=== PATIENT | female | born 1950 | race Caucasian/White ===

== ENCOUNTER → 2016-07-10 | Outpatient (CLI) | payer MEDICARE, OTHER ==
[2016-07-10 11:12] LABS: ABSOLUTE EOSINOPHILS # (AUTO) 0.1 10^3/uL (0.0-0.6); ABSOLUTE MONOCYTES (AUTO) 0.4 10^3/uL (0.1-1.4); ABSOLUTE NEUT (AUTO) 2.7 10^3/uL (1.7-8.2); BASOPHILS % (AUTO) 0.4 % (0-2); EOSINOPHILS % (AUTO) 2.4 % (0-6); HEMATOCRIT 31.2 % (36.0-47.0); HEMOGLOBIN 10.6 g/dL (12.0-15.5); HGB HCT DIFFERENCE 0.6; LYMPHOCYTES % (AUTO) 22.9 % (13-45); MEAN CORPUSCULAR HEMOGLOBIN 32.6 pg (27.0-33.4); MEAN CORPUSCULAR HGB CONC 33.9 g/dL (32.0-36.0); MEAN CORPUSCULAR VOLUME 96 fl (80-97); MONOCYTES % (AUTO) 9.9 % (3-13); RED BLOOD COUNT 3.24 10^6/uL (3.72-5.28); RED CELL DISTRIBUTION WIDTH 16.6 % (11.5-14.0); SEGMENTED NEUTROPHILS % (AUTO) 64.4 % (42-78); WHITE BLOOD COUNT 4.2 10^3/uL (4.0-10.5)
[2016-07-10 11:22] LABS: APPEARANCE,URINE CLEAR; BILIRUBIN,URINE NEGATIVE (NEGATIVE); GLUCOSE, URINE NEGATIVE (NEGATIVE); KETONES,URINE NEGATIVE (NEGATIVE); LEUKOCYTE ESTERASE,URINE NEGATIVE (NEGATIVE); NITRITE,URINE NEGATIVE (NEGATIVE); PROTEIN,URINE NEGATIVE (NEGATIVE); UROBILINOGEN,URINE NEGATIVE mg/dL (<2.0)
[2016-07-10 11:26] LABS: ALANINE AMINOTRANSFERASE 36 U/L (9-52); ALBUMIN 4.1 g/dL (3.5-5.0); ALKALINE PHOSPHATASE 155 U/L (38-126); ANION GAP 9 (5-19); ASPARTATE AMINO TRANSFERASE 42 U/L (14-36); BILIRUBIN,TOTAL 2.6 mg/dL (0.2-1.3); BLOOD UREA NITROGEN 30 mg/dL (7-20); CALCIUM 9.2 mg/dL (8.4-10.2); CARBON DIOXIDE 30 mmol/L (22-30); CHLORIDE 99 mmol/L (98-107); GLUCOSE 100 mg/dL (75-110); MAGNESIUM 2.1 mg/dL (1.6-2.3); POTASSIUM 3.8 mmol/L (3.6-5.0); SODIUM 138.1 mmol/L (137-145); TOTAL PROTEIN 8.1 g/dL (6.3-8.2)
== END ==
LOC: OD 10:29
PROVIDERS: ATTEND Internal Medicine Cardiovascular Disease
DX: Z79.899 Other long term (current) drug therapy (principal); Z79.01 Long term (current) use of anticoagulants
CPT/HCPCS: 36415; 80048; 80076; 81001; 82272; 83735; 85025; 85730

== ENCOUNTER → 2016-10-21 | Outpatient (CLI) | payer MEDICARE, OTHER ==
[2016-10-21 11:21] LABS: APPEARANCE,URINE CLEAR; BILIRUBIN,URINE NEGATIVE (NEGATIVE); GLUCOSE, URINE NEGATIVE (NEGATIVE); KETONES,URINE NEGATIVE (NEGATIVE); LEUKOCYTE ESTERASE,URINE NEGATIVE (NEGATIVE); NITRITE,URINE NEGATIVE (NEGATIVE); PROTEIN,URINE NEGATIVE (NEGATIVE); URINE SPECIFIC GRAVITY 1.006; UROBILINOGEN,URINE NEGATIVE mg/dL (<2.0)
[2016-10-21 12:01] LABS: ABSOLUTE EOSINOPHILS # (AUTO) 0.2 10^3/uL (0.0-0.6); ABSOLUTE MONOCYTES (AUTO) 0.5 10^3/uL (0.1-1.4); ABSOLUTE NEUT (AUTO) 2.5 10^3/uL (1.7-8.2); BASOPHILS % (AUTO) 0.3 % (0-2); EOSINOPHILS % (AUTO) 5.7 % (0-6); HEMATOCRIT 32.3 % (36.0-47.0); HEMOGLOBIN 10.9 g/dL (12.0-15.5); HGB HCT DIFFERENCE 0.4; LYMPHOCYTES % (AUTO) 23.9 % (13-45); MEAN CORPUSCULAR HEMOGLOBIN 33.2 pg (27.0-33.4); MEAN CORPUSCULAR HGB CONC 33.8 g/dL (32.0-36.0); MEAN CORPUSCULAR VOLUME 98 fl (80-97); MONOCYTES % (AUTO) 10.9 % (3-13); RED BLOOD COUNT 3.29 10^6/uL (3.72-5.28); RED CELL DISTRIBUTION WIDTH 14.7 % (11.5-14.0); SEGMENTED NEUTROPHILS % (AUTO) 59.2 % (42-78); WHITE BLOOD COUNT 4.2 10^3/uL (4.0-10.5)
[2016-10-21 12:26] LABS: ALANINE AMINOTRANSFERASE 29 U/L (9-52); ALBUMIN 3.8 g/dL (3.5-5.0); ALKALINE PHOSPHATASE 180 U/L (38-126); ANION GAP 9 (5-19); ASPARTATE AMINO TRANSFERASE 39 U/L (14-36); BILIRUBIN,DIRECT 0.4 mg/dL (0.0-0.4); BILIRUBIN,TOTAL 1.1 mg/dL (0.2-1.3); BLOOD UREA NITROGEN 14 mg/dL (7-20); CALCIUM 9.4 mg/dL (8.4-10.2); CARBON DIOXIDE 26 mmol/L (22-30); CHLORIDE 107 mmol/L (98-107); CREATININE RESULT 0.77 mg/dL (0.52-1.25); GLUCOSE 88 mg/dL (75-110); MAGNESIUM 2.1 mg/dL (1.6-2.3); POTASSIUM 4.4 mmol/L (3.6-5.0); TOTAL PROTEIN 7.9 g/dL (6.3-8.2)
== END ==
LOC: OD 10:35
PROVIDERS: ATTEND Internal Medicine Cardiovascular Disease
DX: Z79.01 Long term (current) use of anticoagulants (principal); Z79.899 Other long term (current) drug therapy
CPT/HCPCS: 36415; 80048; 80076; 81001; 82272; 83735; 85025; 85730

== ENCOUNTER → 2017-02-08 | Outpatient (CLI) | payer MEDICARE, OTHER ==
[2017-02-08 12:40] LABS: APPEARANCE,URINE SLIGHTLY-CLOUDY; BILIRUBIN,URINE NEGATIVE (NEGATIVE); CALCIUM OXALATE CRYSTALS,URINE MANY /HPF; GLUCOSE, URINE NEGATIVE (NEGATIVE); KETONES,URINE NEGATIVE (NEGATIVE); LEUKOCYTE ESTERASE,URINE NEGATIVE (NEGATIVE); NITRITE,URINE NEGATIVE (NEGATIVE); PROTEIN,URINE NEGATIVE (NEGATIVE); URINE SPECIFIC GRAVITY 1.013; UROBILINOGEN,URINE NEGATIVE mg/dL (<2.0)
[2017-02-08 13:30] LABS: ABSOLUTE EOSINOPHILS # (AUTO) 0.3 10^3/uL (0.0-0.6); ABSOLUTE LYMPHOCYTES (AUTO) 1.2 10^3/uL (0.5-4.7); ABSOLUTE MONOCYTES (AUTO) 0.3 10^3/uL (0.1-1.4); BASOPHILS % (AUTO) 0.3 % (0-2); EOSINOPHILS % (AUTO) 7.2 % (0-6); HEMATOCRIT 34.4 % (36.0-47.0); HEMOGLOBIN 12.1 g/dL (12.0-15.5); HGB HCT DIFFERENCE 1.9; LYMPHOCYTES % (AUTO) 31.8 % (13-45); MEAN CORPUSCULAR HEMOGLOBIN 32.8 pg (27.0-33.4); MEAN CORPUSCULAR HGB CONC 35.1 g/dL (32.0-36.0); MEAN CORPUSCULAR VOLUME 93 fl (80-97); MONOCYTES % (AUTO) 8.7 % (3-13); RED BLOOD COUNT 3.69 10^6/uL (3.72-5.28); RED CELL DISTRIBUTION WIDTH 13.4 % (11.5-14.0); WHITE BLOOD COUNT 3.8 10^3/uL (4.0-10.5)
[2017-02-08 13:47] LABS: ALANINE AMINOTRANSFERASE 31 U/L (9-52); ALBUMIN 3.8 g/dL (3.5-5.0); ALKALINE PHOSPHATASE 150 U/L (38-126); ANION GAP 8 (5-19); ASPARTATE AMINO TRANSFERASE 40 U/L (14-36); BILIRUBIN,DIRECT 0.4 mg/dL (0.0-0.4); BILIRUBIN,TOTAL 0.8 mg/dL (0.2-1.3); BLOOD UREA NITROGEN 16 mg/dL (7-20); CALCIUM 9.3 mg/dL (8.4-10.2); CARBON DIOXIDE 28 mmol/L (22-30); CHLORIDE 105 mmol/L (98-107); CREATININE RESULT 0.91 mg/dL (0.52-1.25); GLUCOSE 89 mg/dL (75-110); MAGNESIUM 2.1 mg/dL (1.6-2.3); POTASSIUM 4.4 mmol/L (3.6-5.0); SODIUM 141.3 mmol/L (137-145); TOTAL PROTEIN 7.7 g/dL (6.3-8.2)
== END ==
LOC: OD 11:45
PROVIDERS: ATTEND Internal Medicine Cardiovascular Disease
DX: Z51.81 Encounter for therapeutic drug level monitoring (principal); Z79.899 Other long term (current) drug therapy; Z79.01 Long term (current) use of anticoagulants
CPT/HCPCS: 36415; 80048; 80076; 81001; 82272; 83735; 85025; 85730

== ENCOUNTER 2017-02-26 18:23 | Emergency (ER) | payer MEDICARE, OTHER ==
--- NOTE | 2017-02-26 19:08 | ER Document Report ---
ED General - General Chief Complaint: Fever Stated Complaint: POSSIBLE FEVER Time Seen by Provider: 02/26/17 19:00 Mode of Arrival: Ambulatory Information source: Patient Notes: 66-year-old female presents with concerns for urinary tract infection. Patient notes that she has had intermittent fever over the past 2 days. Denies any pain anywhere. Patient admits to chills denies any shortness of breath cough TRAVEL OUTSIDE OF THE [place] IN LAST 30 DAYS: No - HPI Onset: Yesterday Onset/Duration: Intermittent Quality of pain: No pain Severity: Mild Pain Level: Denies Associated symptoms: Nausea Exacerbated by: Denies Relieved by: Denies Similar symptoms previously: Yes Recently seen / treated by doctor: Yes - Related Data Allergies/Adverse Reactions: codeine [Codeine] Allergy (Mild, Verified 05/26/12 09:28) Hyperactivity Iodinated Contrast- Oral and IV Dye [IV Dye, Iodine Containing] Allergy ( Verified 05/23/12 09:43) nitrofurantoin [From Macrobid] Allergy (Verified 05/23/12 09:43) nitrofurantoin macrocrystalline [From Macrobid] Allergy (Verified 05/23/12 09:43 ) Past Medical History - Social History Smoking Status: Never Smoker Cigarette use (# per day): No Chew tobacco use (# tins/day): No Smoking Education Provided: No Family History: Reviewed & Not Pertinent Patient has suicidal ideation: No Patient has homicidal ideation: No - Past Medical History Cardiac Medical History: Denies: Hx Heart Attack, Hx Hypertension Pulmonary Medical History: Reports: Hx Asthma - ?? "SENIOR ASTHMA" Neurological Medical History: Denies: Hx Cerebrovascular Accident, Hx Seizures Renal/ Medical History: Denies: Hx Peritoneal Dialysis GI Medical History: Reports: Hx Hiatal Hernia. Denies: Hx Hepatitis, Hx Ulcer Infectious Medical History: Denies: Hx Hepatitis Past Surgical History: Denies: Hx Hysterectomy, Hx Mastectomy, Hx Open Heart Surgery, Hx Pacemaker Review of Systems - Review of Systems Notes: REVIEW OF SYSTEMS: CONSTITUTIONAL : Admits to fever EENT: Denies eye, ear, throat, or mouth pain or symptoms. Denies nasal or sinus congestion or discharge. Denies throat, tongue, or mouth swelling or difficulty swallowing. CARDIOVASCULAR: Denies chest pain. Denies palpitations or racing or irregular heart beat. Denies ankle edema. RESPIRATORY: Denies cough, cold, or chest congestion. Denies shortness of breath, difficulty breathing, or wheezing. GASTROINTESTINAL: Admits to nausea GENITOURINARY: Denies difficulty urinating, painful urination, burning, frequency, blood in urine, or discharge. FEMALE GENITOURINARY: Denies vaginal bleeding, heavy or abnormal periods, irregular periods. Denies vaginal discharge or odor. MUSCULOSKELETAL: Denies back or neck pain or stiffness. Denies joint pain or swelling. SKIN: Denies rash, lesions or sores. HEMATOLOGIC : Denies easy bruising or bleeding. LYMPHATIC: Denies swollen, enlarged glands. NEUROLOGICAL: Denies confusion or altered mental status. Denies passing out or loss of consciousness. Denies dizziness or lightheadedness. Denies headache. Denies weakness or paralysis or loss of use of either side. Denies problems with gait or speech. Denies sensory loss, numbness, or tingling. Denies seizures. PSYCHIATRIC: Denies anxiety or stress. Denies depression, suicidal ideation, or homicidal ideation. ALL OTHER SYSTEMS REVIEWED AND NEGATIVE. PHYSICAL EXAMINATION: GENERAL: Well-appearing, well-nourished and in no acute distress. HEAD: Atraumatic, normocephalic. EYES: Pupils equal round and reactive to light, extraocular movements intact, conjunctiva are normal. ENT: Nares patent, oropharynx clear without exudates. Moist mucous membranes. NECK: Normal range of motion, supple without lymphadenopathy LUNGS: Breath sounds clear to auscultation bilaterally and equal. No wheezes rales or rhonchi. HEART: Regular rate and rhythm without murmurs ABDOMEN: Soft, nontender, nondistended abdomen. No guarding, no rebound. No masses appreciated. Female : deferred Musculoskeletal: Normal range of motion, no pitting or edema. No cyanosis. NEUROLOGICAL: Cranial nerves grossly intact. Normal speech, normal gait. Normal sensory, motor exams PSYCH: Normal mood, normal affect. SKIN: Warm, Dry, normal turgor, no rashes or lesions noted. Dictation was performed using [employer] recognition software Physical Exam - Vital signs Vitals: Temp Pulse Resp BP Pulse Ox 99.7 F 86 18 96/50 L 96 02/26/17 18:28 02/26/17 18:28 02/26/17 18:28 02/26/17 18:28 02/26/17 18:28 Course - Re-evaluation Re-evalutation: 02/26/17 19:07 Overall well-appearing female no acute distress vitals appears stable at this time I will perform CBC CMP blood cultures 02/26/17 20:52 Lab work urinalysis noted no significant abnormality, patient has not made very aware of her lab findings. She will be discharged home with cultures pending Patient is happy with this plan After performing a Medical Screening Examination, I estimate there is LOW risk for ACUTE CORONARY SYNDROME, RESPIRATORY FAILURE, SEPSIS OR MENINGITIS, thus I consider the discharge disposition reasonable. I have reevaluated this patient multiple times and no significant life threatening changes are noted. The patient and I have discussed the diagnosis and risks, and we agree with discharging home with close follow-up. We also discussed returning to the Emergency Department immediately if new or worsening symptoms occur. We have discussed the symptoms which are most concerning (e.g., changing or worsening pain, trouble swallowing or breathing, neck stiffness, fever) that necessitate immediate return. - Vital Signs Vital signs: Temp Pulse Resp BP Pulse Ox 99.7 F 81 20 98/52 L 96 02/26/17 18:28 02/26/17 19:10 02/26/17 19:07 02/26/17 19:10 02/26/17 18:28 - Laboratory Result Diagrams: 02/26/17 19:40 02/26/17 19:40 Laboratory results interpreted by me: 02/26/17 02/26/17 02/26/17 19:40 19:40 19:40 WBC 10.9 H RBC 3.48 L Hgb 11.6 L Hct 32.6 L Plt Count 82 L Seg Neutrophils % 82.8 H Lymphocytes % 5.4 L Absolute Neutrophils 9.0 H Sodium 136.1 L Carbon Dioxide 21 L Est GFR (Non-Af Amer) 55 L Glucose 120 H Total Bilirubin 2.0 H Direct Bilirubin 1.0 H Alkaline Phosphatase 209 H Urine Protein 100 H Urine Urobilinogen 4.0 H Ur Leukocyte Esterase TRACE H Urine Ascorbic Acid 40 H Discharge - Discharge Clinical Impression: Nausea Fever Qualifiers: Fever type: unspecified Qualified Code(s): R50.9 - Fever, unspecified Condition: Stable Disposition: HOME, SELF-CARE Instructions: Fever ([facility]) Additional Instructions: Follow up with your physician tomorrow for further care or return to the ED IMMEDIATELY if symptoms worsen or new concerns occur. If you cannot afford to follow up with your primary care physician a list of low cost clinics have been provided at the end of your discharge papers as well.
[2017-02-26 19:11] VITALS: BP 98/52
[2017-02-26 20:12] LABS: ABSOLUTE LYMPHOCYTES (AUTO) 0.6 10^3/uL (0.5-4.7); ABSOLUTE MONOCYTES (AUTO) 1.2 10^3/uL (0.1-1.4); BASOPHILS % (AUTO) 0.2 % (0-2); EOSINOPHILS % (AUTO) 0.3 % (0-6); HEMATOCRIT 32.6 % (36.0-47.0); HEMOGLOBIN 11.6 g/dL (12.0-15.5); HGB HCT DIFFERENCE 2.2; LYMPHOCYTES % (AUTO) 5.4 % (13-45); MEAN CORPUSCULAR HEMOGLOBIN 33.4 pg (27.0-33.4); MEAN CORPUSCULAR HGB CONC 35.7 g/dL (32.0-36.0); MEAN CORPUSCULAR VOLUME 94 fl (80-97); MONOCYTES % (AUTO) 11.3 % (3-13); RED BLOOD COUNT 3.48 10^6/uL (3.72-5.28); RED CELL DISTRIBUTION WIDTH 13.6 % (11.5-14.0); SEGMENTED NEUTROPHILS % (AUTO) 82.8 % (42-78); WHITE BLOOD COUNT 10.9 10^3/uL (4.0-10.5)
[2017-02-26 20:23] LABS: ALANINE AMINOTRANSFERASE 28 U/L (9-52); ALBUMIN 3.6 g/dL (3.5-5.0); ALKALINE PHOSPHATASE 209 U/L (38-126); ANION GAP 12 (5-19); ASPARTATE AMINO TRANSFERASE 33 U/L (14-36); BLOOD UREA NITROGEN 15 mg/dL (7-20); CALCIUM 8.7 mg/dL (8.4-10.2); CARBON DIOXIDE 21 mmol/L (22-30); CHLORIDE 103 mmol/L (98-107); CREATININE RESULT 1.01 mg/dL (0.52-1.25); GLUCOSE 120 mg/dL (75-110); POTASSIUM 4.1 mmol/L (3.6-5.0); SODIUM 136.1 mmol/L (137-145); TOTAL PROTEIN 7.7 g/dL (6.3-8.2)
[2017-02-26 20:29] LABS: APPEARANCE,URINE SLIGHTLY-CLOUDY; BILIRUBIN,URINE NEGATIVE (NEGATIVE); GLUCOSE, URINE NEGATIVE (NEGATIVE); KETONES,URINE NEGATIVE (NEGATIVE); LEUKOCYTE ESTERASE,URINE TRACE (NEGATIVE); NITRITE,URINE NEGATIVE (NEGATIVE); PROTEIN,URINE 100 mg/dL (NEGATIVE); URINE SPECIFIC GRAVITY 1.026
== END 2017-02-26 20:55 | disposition home or self-care (01) ==
LOC: ER 18:23
DX: R50.9 Fever, unspecified (principal); R11.0 Nausea
CPT/HCPCS: 36415; 80053; 81001; 85025; 87040; 87077; 87086; 87186; 99283

== ENCOUNTER 2017-02-27 14:57 | Inpatient (IN) | payer MEDICARE, OTHER ==
[2017-02-27] MEDS ORDERED: CEFTRIAXONE 1 GM/D5W RTU 1 GM/50 ML RTUPB IV ONE (15:07)
[2017-02-27] MEDS ORDERED: ONDANSETRON HCL INJ/PF 4 MG/2 ML SDV IV ONE (15:08)
--- NOTE | 2017-02-27 15:10 | ER Document Report ---
ED Medical Screen (RME) - General Chief Complaint: Weakness Stated Complaint: VOMITTING Time Seen by Provider: 02/27/17 15:07 Mode of Arrival: Ambulatory Information source: Patient Notes: 66 yr old female presents with complaints of nausea vomiting and fever. Pt was seen yesterday for fever, labs noted no acute abnormality. first bottle of blood culture was gram + cocci I have greeted and performed a rapid initial assessment of this patient. A comprehensive ED assessment and evaluation of the patient, analysis of test results and completion of the medical decision making process will be conducted by additional ED providers. PHYSICAL EXAMINATION: GENERAL: febrile ill appearing HEAD: Atraumatic, normocephalic. EYES: Pupils equal round extraocular movements intact, conjunctiva are normal. ENT: Nares patent NECK: Normal range of motion LUNGS: No respiratory distress Musculoskeletal: Normal range of motion NEUROLOGICAL: Normal speech, normal gait. PSYCH: Normal mood, normal affect. SKIN: Warm, Dry, normal turgor, no rashes or lesions noted. TRAVEL OUTSIDE OF THE [place] IN LAST 30 DAYS: No - Related Data Allergies/Adverse Reactions: codeine [Codeine] Allergy (Mild, Verified 02/27/17 15:00) Hyperactivity Iodinated Contrast- Oral and IV Dye [IV Dye, Iodine Containing] Allergy ( Verified 02/27/17 15:00) nitrofurantoin [From Macrobid] Allergy (Verified 02/27/17 15:00) nitrofurantoin macrocrystalline [From Macrobid] Allergy (Verified 02/27/17 15:00 ) Past Medical History - Past Medical History Cardiac Medical History: Denies: Hx Heart Attack, Hx Hypertension Pulmonary Medical History: Reports: Hx Asthma - ?? "SENIOR ASTHMA" Neurological Medical History: Denies: Hx Cerebrovascular Accident, Hx Seizures Renal/ Medical History: Denies: Hx Peritoneal Dialysis GI Medical History: Reports: Hx Hiatal Hernia. Denies: Hx Hepatitis, Hx Ulcer Infectious Medical History: Denies: Hx Hepatitis Past Surgical History: Denies: Hx Hysterectomy, Hx Mastectomy, Hx Open Heart Surgery, Hx Pacemaker - Immunizations History of Influenza Vaccine for 02/2017 - 07/2017 Season: No Physical Exam - Vital signs Vitals: Temp Pulse Resp BP Pulse Ox 103.1 F H 79 20 99/46 L 95 02/27/17 15:01 02/27/17 15:01 02/27/17 15:01 02/27/17 15:01 02/27/17 15:01 Course - Vital Signs Vital signs: Temp Pulse Resp BP Pulse Ox 103.1 F H 79 20 99/46 L 95 02/27/17 15:01 02/27/17 15:01 02/27/17 15:01 02/27/17 15:01 02/27/17 15:01
[2017-02-27] MEDS ORDERED: ACETAMINOPHEN 325 MG TABLET PO ONE (15:24)
[2017-02-27] MEDS: NORMAL SALINE 1000 ML 1,000 ML IV PRN ×2 (16:22→22:15)
[2017-02-27 16:51] LABS: VENOUS BLOOD BASE EXCESS 2.2 mmol/L; VENOUS BLOOD HCO3 26.6 mmol/L (20-32); VENOUS BLOOD PCO2 40.7 mmHg (35-63); VENOUS BLOOD PH 7.43 (7.30-7.42)
[2017-02-27 16:57] LABS: PROTHROMBIN TIME 19.4 SEC (11.4-15.4)
--- NOTE | 2017-02-27 17:54 | ER Document Report ---
ED General - General Chief Complaint: Weakness Stated Complaint: VOMITTING Time Seen by Provider: 02/27/17 15:07 Mode of Arrival: Ambulatory Notes: Been feeling well for about 3-4 days. She is concerned that she might have sepsis. She says that she has had vomiting and chills and fever since Wednesday. She was here last night and her lab results were all relatively normal and benign. Urinalysis only had a few white cells in her white cell count was only 10,900. She had cultures drawn and her blood culture showed growth of a gram-positive organism so the patient was called to come back for treatment. Urine culture at this time does not show any growth. Patient's past history is important in that she has a history of atrial fibrillation but underwent ablation treatment a few years ago. 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 She is currently on Eliquis blood thinner. TRAVEL OUTSIDE OF THE [place] IN LAST 30 DAYS: No - Related Data Allergies/Adverse Reactions: codeine [Codeine] Allergy (Mild, Verified 02/27/17 21:33) Hyperactivity Iodinated Contrast- Oral and IV Dye [IV Dye, Iodine Containing] Allergy ( Verified 02/27/17 15:00) nitrofurantoin [From Macrobid] Allergy (Verified 02/27/17 15:00) nitrofurantoin macrocrystalline [From Macrobid] Allergy (Verified 02/27/17 15:00 ) Home Medications: Current Home Medications Apixaban [Eliquis] 5 mg PO BID 02/27/17 [History] Atorvastatin Calcium 10 mg PO QHS 02/27/17 [History] Ibandronate Sodium [Boniva] 150 mg PO [id number] 02/27/17 [History] Levothyroxine Sodium [Synthroid] 125 mcg PO DAILY 02/27/17 [History] Past Medical History - General Information source: Patient - Social History Smoking Status: Never Smoker Chew tobacco use (# tins/day): No Frequency of alcohol use: None Drug Abuse: None Family History: Reviewed & Not Pertinent - Past Medical History Cardiac Medical History: Reports: Hx Atrial Fibrillation - History of A. fib treated with ablation, Hx Hypercholesterolemia, Other - Patient has a history of atrial fibrillation undergoing ablation treatment. Denies: Hx Heart Attack, Hx Hypertension Pulmonary Medical History: Reports: Hx Asthma - ?? "SENIOR ASTHMA" GI Medical History: Reports: Hx Hiatal Hernia. Denies: Hx Hepatitis, Hx Ulcer Infectious Medical History: Denies: Hx Hepatitis Past Surgical History: Denies: Hx Hysterectomy, Hx Mastectomy, Hx Open Heart Surgery, Hx Pacemaker Review of Systems - Review of Systems Notes: REVIEW OF SYSTEMS: CONSTITUTIONAL : See HPI. Having fever and chills. EENT: Denies eye, ear, nose or mouth or throat pain or other symptoms. CARDIOVASCULAR: Denies chest pain. RESPIRATORY: Denies cough, chest congestion, or shortness of breath. GASTROINTESTINAL: Denies abdominal pain or vomiting, or diarrhea. Some nausea. Feels abdomen is bloated. GENITOURINARY: Says she is having difficulty controlling her urine. Denies difficulty or painful urinating, urinary frequency, blood in urine. MUSCULOSKELETAL: Denies back or neck pain. Denies joint pain or swelling. SKIN: Denies rash or skin lesions. NEUROLOGICAL: Denies LOC or altered mental status. Denies headache. Denies sensory loss or motor deficits. ALL OTHER SYSTEMS REVIEWED AND NEGATIVE. Physical Exam - Vital signs Vitals: Temp Pulse Resp BP Pulse Ox 103.1 F H 79 20 99/46 L 95 02/27/17 15:01 02/27/17 15:01 02/27/17 15:01 02/27/17 15:01 02/27/17 15:01 Interpretation: Febrile - Notes Notes: PHYSICAL EXAMINATION: GENERAL: Well-appearing, in no acute distress. Temp 103.1 in triage. HEAD: Atraumatic, normocephalic. EYES: Pupils equal round and reactive to light, extraocular movements intact. ENT: oropharynx clear without exudates. Moist mucous membranes. NECK: Normal range of motion, supple. LUNGS: Breath sounds clear and equal bilaterally. HEART: Regular rate and rhythm with grade 2/6 systolic murmur. Patient knows that she has a murmur. ABDOMEN: Soft, nontender. No guarding or rebound. BACK: No tenderness throughout entire back. EXTREMITIES: Normal range of motion without pain. NEUROLOGICAL: Normal speech, normal gait. Normal sensory, motor, and reflex exams. Awake, alert, and oriented x3. Cranial nerves normal. SKIN: Warm, dry, no rashes. Course - Re-evaluation Re-evalutation: 02/27/17 19:[address] Ford, the night hospitalist and he will admit the patient for further antibiotic therapy. - Vital Signs Vital signs: Temp Pulse Resp BP Pulse Ox 99.2 F 79 21 H 103/55 L 97 02/27/17 19:51 02/27/17 15:01 02/27/17 23:30 02/27/17 23:30 02/27/17 23:30 - Laboratory Result Diagrams: 02/27/17 17:44 02/27/17 17:44 Laboratory results interpreted by me: 02/27/17 02/27/17 02/27/17 16:10 16:10 17:44 RBC Hgb Hct Plt Count Seg Neutrophils % Lymphocytes % Absolute Lymphocytes PT 19.4 H VBG pH 7.43 H Sodium 134.5 L Carbon Dioxide 21 L Glucose 115 H Total Bilirubin 2.2 H Direct Bilirubin 1.2 H AST 39 H Alkaline Phosphatase 212 H Albumin 3.1 L TSH Urine Protein Urine Ketones Urine Blood Urine Urobilinogen 02/27/17 02/27/17 02/27/17 17:44 17:44 19:43 RBC 3.30 L Hgb 10.8 L Hct 30.8 L Plt Count 77 L Seg Neutrophils % 83.3 H Lymphocytes % 5.5 L Absolute Lymphocytes 0.4 L PT VBG pH Sodium Carbon Dioxide Glucose Total Bilirubin Direct Bilirubin AST Alkaline Phosphatase Albumin TSH < 0.01 L Urine Protein 30 H Urine Ketones TRACE H Urine Blood MODERATE H Urine Urobilinogen 4.0 H - EKG Interpretation by [place] EKG shows normal: Sinus rhythm Rate: Normal Rhythm: NSR Discharge - Discharge Clinical Impression: Fever, Positive blood culture Condition: Stable Disposition: ADMITTED INPATIENT Admitting Provider: Hospitalist Unit Admitted: [facility]
[2017-02-27 18:12] LABS: ABSOLUTE LYMPHOCYTES (AUTO) 0.4 10^3/uL (0.5-4.7); ABSOLUTE MONOCYTES (AUTO) 0.8 10^3/uL (0.1-1.4); ABSOLUTE NEUT (AUTO) 5.9 10^3/uL (1.7-8.2); BASOPHILS % (AUTO) 0.1 % (0-2); EOSINOPHILS % (AUTO) 0.1 % (0-6); HEMATOCRIT 30.8 % (36.0-47.0); HEMOGLOBIN 10.8 g/dL (12.0-15.5); HGB HCT DIFFERENCE 1.6; LYMPHOCYTES % (AUTO) 5.5 % (13-45); MEAN CORPUSCULAR HEMOGLOBIN 32.7 pg (27.0-33.4); MEAN CORPUSCULAR VOLUME 93 fl (80-97); RED CELL DISTRIBUTION WIDTH 13.3 % (11.5-14.0); SEGMENTED NEUTROPHILS % (AUTO) 83.3 % (42-78); WHITE BLOOD COUNT 7.1 10^3/uL (4.0-10.5)
[2017-02-27 18:25] LABS: ALANINE AMINOTRANSFERASE 39 U/L (9-52); ALBUMIN 3.1 g/dL (3.5-5.0); ALKALINE PHOSPHATASE 212 U/L (38-126); ANION GAP 9 (5-19); ASPARTATE AMINO TRANSFERASE 39 U/L (14-36); BILIRUBIN,DIRECT 1.2 mg/dL (0.0-0.4); BILIRUBIN,TOTAL 2.2 mg/dL (0.2-1.3); BLOOD UREA NITROGEN 16 mg/dL (7-20); CALCIUM 8.5 mg/dL (8.4-10.2); CARBON DIOXIDE 21 mmol/L (22-30); CHLORIDE 105 mmol/L (98-107); CREATININE RESULT 0.92 mg/dL (0.52-1.25); GLUCOSE 115 mg/dL (75-110); SODIUM 134.5 mmol/L (137-145)
[2017-02-27] MEDS ORDERED: VANCOMYCIN HCL INJ 1000 MG VIAL IV ONE (18:39)
[2017-02-27 20:30] LABS: APPEARANCE,URINE CLEAR; BILIRUBIN,URINE NEGATIVE (NEGATIVE); GLUCOSE, URINE NEGATIVE (NEGATIVE); KETONES,URINE TRACE mg/dL (NEGATIVE); LEUKOCYTE ESTERASE,URINE NEGATIVE (NEGATIVE); NITRITE,URINE NEGATIVE (NEGATIVE); PROTEIN,URINE 30 mg/dL (NEGATIVE); URINE SPECIFIC GRAVITY 1.014
[2017-02-27] MEDS ORDERED: NORMAL SALINE 1000 ML 1,000 ML IV PRN (21:26)
[2017-02-27] MEDS ORDERED: MAGNESIUM HYDROXIDE SUSP 30 ML UDCUP PO PRN (21:28)
[2017-02-27] MEDS ORDERED: VANCOMYCIN HCL 0 MG in DEXTROSE 5%-WATER 250 ML IV NR (21:30)
[2017-02-27] MEDS ORDERED: PROMETHAZINE HCL 25 MG TABLET PO PRN (21:33)
[2017-02-27] MEDS ORDERED: ACETAMINOPHEN 325 MG TABLET PO PRN (21:33)
[2017-02-27 21:35] LABS: ADD ON TESTING BLD IN LAB ACKNOWLEDGE
--- NOTE | 2017-02-27 21:38 | RADIOLOGY REPORT (SQ) ---
EXAM DESCRIPTION: CHEST SINGLE VIEW COMPLETED DATE/TIME: 02/27/2017 8:33 pm REASON FOR STUDY: hypotension, + bld cx COMPARISON: 02/24/2012 EXAM PARAMETERS: NUMBER OF VIEWS: One view. TECHNIQUE: Single frontal radiographic view of the chest acquired. RADIATION DOSE: NA LIMITATIONS: None. FINDINGS: LUNGS AND PLEURA: No opacities, masses or pneumothorax. No pleural effusion. MEDIASTINUM AND HILAR STRUCTURES: No masses. Contour normal. HEART AND VASCULAR STRUCTURES: Mild cardiomegaly. Normal vasculature. BONES: No acute findings. HARDWARE: Interval surgical changes of the mediastinum and right axilla. OTHER: No other significant finding. IMPRESSION: NO ACUTE RADIOGRAPHIC FINDING IN THE CHEST. TECHNICAL DOCUMENTATION: JOB ID: [id number]
[2017-02-27 21:43] LABS: MAGNESIUM 1.9 mg/dL (1.6-2.3)
--- NOTE | 2017-02-27 21:51 | PDOC H&P ---
History of Present Illness Admission Date/PCP: 02/27/17 19:[address] Brent SQUIRES Patient complains of: weak, vomit History of Present Illness: YUSUF SHEARER is a 66 year old female with medical history remarkable for mild arthritis, hyperlipidemia, hypothyroidism, atrial fibrillation, status post ablation for same, on Eliquis, status post porcine aortic valve replacement last year, with subsequent pericardiectomy in July of this year, both at [facility] who presents to the emergency room for the second time in approximately 24-36 hours for a number of complaints. Patient has been discussed with emergency room physician who evaluated the patient. Describes 3-4 day history of nausea and vomiting, along with fever and shaking chills in general not feeling well. Generalized weakness also. No diarrhea or dysuria, chest or abdominal pain. Last urinary tract infection was 1 year ago. No history of nephrolithiasis. Was seen in the emergency room the evening of the with concern for possible urinary tract infection. Labs were noted. Was not felt to have such infection and was discharged home. Return with continued complaints. Blood cultures noted to be positive for gram-positive cocci. Mildly hypotensive in the emergency room, with pressures responding reasonably well to IV fluids. Currently resting quietly, stating she feels much better. Dictation via voice recognition software. Laboratory results are listed in [facility] and are reviewed. X-ray summary results are listed below, with full report(s) reviewed. EKG reviewed and compared to prior tracing from September 27, 2013. Social history/personal habits: . Lives alone. Has children. 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 Rare alcohol. No use of tobacco or illicit drugs. Allergies/adverse reactions are listed in [facility] and are reviewed. Home medications initially autopopulated into [employer] may not accurately reflect patient's true medications, dosages, and/or frequencies. 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 Unfortunately, patient not certain of all medications/dosages/frequencies. REVIEW OF SYSTEMS: Constitutional: See history and present illness. Eyes: Wears glasses. ENT: No swallowing problems or complaints. Denies hearing loss. Pulmonary: No current complaints. Cardiovascular: No current complaints, including chest pain. Gastrointestinal: See history and present illness. Skin: No current complaints, including rashes. Hematologic: Easy bruising. Neurologic: No current complaints, including numbness or tingling. Musculoskeletal: Joint pain from arthritis. Psychiatric: Denies anxiety or depression. Endocrine: No current complaints, including polyuria. Genitourinary: No current complaints, including dysuria. PHYSICAL EXAMINATION: Female emergency room nursing unit coordinator Jovi is present. Male playground worker is present; patient approves. 5 feet 5 inches tall. 63.96 kg. BMI 23.5 kg/m. Blood pressure 95/59. Pulse 68 and regular. 99% saturation on room air. Respirations are 22 and unlabored. Temperature 99.2; recorded as 103.1 on admission several hours ago. Thin otherwise well-developed though perhaps slightly chronically ill-appearing female who nevertheless appears approximately her stated age. Pleasant awake alert and cooperative. No obvious distress other than perhaps mildly anxious. No agitation. Skin is warm and dry. No grossly obvious evidence of rash in areas of skin examined. No subcutaneous nodules palpated. ENT: Hearing grossly normal to normal conversation. Tongue midline on protrusion pink and moist. Eyes: No scleral icterus. Pupils equal and reactive to light at 4 mm. [place] conjunctivae. Neck is supple and nontender to gentle active range of motion and palpation. Midline trachea. No palpable thyroid nodule mass enlargement or tenderness. Lymphatic: No palpable cervical or clavicular nodes. Neck and lymphatic exams limited by patient body habitus. Psychiatric: Reasonable insight into acute and chronic medical issues. Oriented to time location and why here. Lungs: Auscultation reveals clear and equal breath sounds bilaterally. No use of accessory respiratory muscles. Cardiovascular: Heart regular rate and rhythm, without gallop or rub. Subtle holosystolic ejection murmur heard at the cardiac apex. No carotid or abdominal aortic bruits. No ankle or pedal edema. Palpable dorsalis pedis pulses. Abdomen:soft slightly distended nontender with positive bowel sounds. Unable to adequately evaluate abdomen for masses or organomegaly due to distention. Extremities: Feet are warm and dry. No calf tenderness to compression. No grossly obvious visual evidence of calf swelling. Gentle manipulation of lower extremities fails to reveal any obvious evidence of injury or instability to knees hips or ankles. Neurologic: Moves upper extremities grossly normally. Patellar reflexes absent. Absent Babinski. Light touch is intact at feet. Dorsiflexion and plantarflexion of feet 5 / 5 and symmetric. Past Medical History Cardiac Medical History: Reports: Atrial Fibrillation - Treated with ablation, Hyperlipidema, Other Denies: Congestive Heart Failure, Coronary Artery Disease, DVT, Myocardial Infarction, Hypertension, Pulmonary Embolism Pulmonary Medical History: Denies: Asthma, Chronic Obstructive Pulmonary Disease (COPD), Sleep Apnea EENT Medical History: Denies: Throat Neurological Medical History: Denies: Hemorrhagic CVA, Ischemic CVA, Seizures Endocrine Medical History: Reports: Hypothyroidism Denies: Diabetes Mellitus Type 1, Diabetes Mellitus Type 2, Hyperthyroidism Renal/ Medical History: Reports: Other - Occasional urinary tract infection. Malignancy Medical History: Reports: Skin Cancer GI Medical History: Reports: Hiatal Hernia Denies: Cirrhosis, Hepatitis, Peptic Ulcer Disease Musculoskeltal Medical History: Reports: Arthritis Skin Medical History: Denies: Eczema, Psoriasis Psychiatric Medical History: Denies: Alcohol Dependency, Depression, General Anxiety Disorder, Substance Abuse, Tobacco Dependency Hematology: Reports: Other - Easy bruising Infectious Medical History: Denies: Hepatitis B, Hepatitis C Past Surgical History Past Surgical History: Reports: Valve Replacement - Porcine aortic valve, Other - Ablation for fibrillation. Pericardiectomy, July 2016 Social History Information Source: Patient, Emergency Med Personnel, [facility] Records Lives with: Alone Smoking Status: Never Smoker Frequency of Alcohol Use: Rare Drugs: None - Advance Directive Resuscitation Status: Full Code Surrogate healthcare decision maker:: Daughter Dave Luna Family History Family History: Reviewed & Not Pertinent Parental Family History Reviewed: Yes - Parents of cancer Children Family History Reviewed: Yes - Healthy Sibling(s) Family History Reviewed.: Yes - Sciatica Medication/Allergy Home Medications: Apixaban [Eliquis] 5 mg PO Q12 02/27/17 Ibandronate Sodium [Boniva] 150 mg PO [id number] 02/27/17 Levothyroxine Sodium [Synthroid] 125 mcg PO DAILY 02/27/17 RX: Atorvastatin Calcium 10 mg PO QHS 02/27/17 Allergies/Adverse Reactions: codeine [Codeine] Allergy (Mild, Verified 02/27/17 21:33) Hyperactivity Iodinated Contrast- Oral and IV Dye [IV Dye, Iodine Containing] Allergy ( Verified 02/27/17 15:00) nitrofurantoin [From Macrobid] Allergy (Verified 02/27/17 15:00) nitrofurantoin macrocrystalline [From Macrobid] Allergy (Verified 02/27/17 15:00 ) Physical Exam Vital Signs: Temp Pulse Resp BP Pulse Ox 99.2 F 79 20 97/61 L 100 02/27/17 19:51 02/27/17 15:01 02/27/17 21:31 02/27/17 21:31 02/27/17 21:31 Results Impressions: Chest X-Ray 02/27/17 00:00 IMPRESSION: NO ACUTE RADIOGRAPHIC FINDING IN THE CHEST. Assessment & Plan - Diagnosis (1) Bacteremia due to Gram-positive bacteria Is this a current diagnosis for this admission?: Yes Plan: Rocephin and intravenous vancomycin. Pharmacy to assist with dosing. (2) Hypotension Qualifiers: Hypotension type: unspecified hypotension type Qualified Code(s): I95.9 - Hypotension, unspecified Is this a current diagnosis for this admission?: Yes Plan: Has responded reasonably well to IV fluid boluses. We will continue IV fluid infusion. (3) UTI (urinary tract infection) Qualifiers: Urinary tract infection type: site unspecified Is this a current diagnosis for this admission?: Yes Plan: I have strongly encouraged patient not to get out of bed without notifying staff , to avoid a fall with injury. Knee high SCDs for DVT prophylaxis; with patient on Eliquis, no need for Lovenox or heparin. Impression and plans were discussed with patient, who concurs. Time spent in evaluation and management of patient: 72 minutes. (4) Anticoagulated Is this a current diagnosis for this admission?: Yes Plan: Resume home medications as appropriate once these have been determined and reviewed. (5) History of aortic valve replacement with porcine valve Is this a current diagnosis for this admission?: Yes (6) Atrial fibrillation Qualifiers: Atrial fibrillation type: chronic Qualified Code(s): I48.2 - Chronic atrial fibrillation Is this a current diagnosis for this admission?: Yes Plan: Resume home medications as appropriate once these have been determined and reviewed. (7) Elevated LFTs Is this a current diagnosis for this admission?: Yes Plan: Repeat chemistry. (8) Thrombocytopenia Is this a current diagnosis for this admission?: Yes Plan: chronic. Followup CBC with differential. - Time Time Spent: Greater than 70 Minutes Medications reviewed and adjusted accordingly: Yes - 2 medications still with uncertain dosages Within: within 72 hours - Inpatient Certification Based on my medical assessment, after consideration of the patient's comorbidities, presenting symptoms, or acuity I expect that the services needed warrant INPATIENT care.: Yes I certify that my determination is in accordance with my understanding of Medicare's requirements for reasonable and necessary INPATIENT services [42 CFR 412.3e].: Yes Medical Necessity: Need Close Monitoring Due to Risk of Patient Decompensation, Need for IV Antibiotics Post Hospital Care: D/C or Transfer Summary
[2017-02-27] MEDS: ATORVASTATIN CALCIUM 10 MG TABLET PO SCH (23:00)
[2017-02-28] MEDS ORDERED: APIXABAN 5 MG TABLET PO ONE (03:15)
[2017-02-28 05:20] LABS: HEMATOCRIT 27.3 % (36.0-47.0); HEMOGLOBIN 9.6 g/dL (12.0-15.5); HGB HCT DIFFERENCE 1.5; MEAN CORPUSCULAR HEMOGLOBIN 32.7 pg (27.0-33.4); MEAN CORPUSCULAR HGB CONC 34.9 g/dL (32.0-36.0); MEAN CORPUSCULAR VOLUME 94 fl (80-97); RED BLOOD COUNT 2.92 10^6/uL (3.72-5.28); RED CELL DISTRIBUTION WIDTH 13.5 % (11.5-14.0); WHITE BLOOD COUNT 4.8 10^3/uL (4.0-10.5)
[2017-02-28 05:24] LABS: ALANINE AMINOTRANSFERASE 33 U/L (9-52); ALBUMIN 2.7 g/dL (3.5-5.0); ALKALINE PHOSPHATASE 170 U/L (38-126); ANION GAP 9 (5-19); ASPARTATE AMINO TRANSFERASE 34 U/L (14-36); BILIRUBIN,TOTAL 1.6 mg/dL (0.2-1.3); BLOOD UREA NITROGEN 14 mg/dL (7-20); CALCIUM 7.9 mg/dL (8.4-10.2); CARBON DIOXIDE 21 mmol/L (22-30); CHLORIDE 109 mmol/L (98-107); CREATININE RESULT 0.86 mg/dL (0.52-1.25); GLUCOSE 103 mg/dL (75-110); POTASSIUM 4.1 mmol/L (3.6-5.0); TOTAL PROTEIN 6.2 g/dL (6.3-8.2)
[2017-02-28 05:48] LABS: BAND NEUTROPHILS % (MANUAL) 8 % (3-5); BASOPHILS % (MANUAL) 0 % (0-2); EOSINOPHILS % (MANUAL) 0 % (0-6); LYMPHOCYTES % (MANUAL) 15 % (13-45); TOTAL CELLS COUNTED 100
[2017-02-28 05:53] LABS: RBC MORPHOLOGY COMMENT NORMO-CYTIC/CHROMIC; TOXIC GRANULATION 2+; TOXIC VACUOLATION PRESENT
[2017-02-28] MEDS ORDERED: PIPERACILLIN SODIUM/TAZOBACTAM 3.375 GM in NORMAL SALINE 100 ML IV ONE ×2 (07:30→11:00)
[2017-02-28] MEDS: DOCUSATE SODIUM 100 MG CAPSULE PO SCH ×2 (09:25→17:18)
[2017-02-28] MEDS: APIXABAN 5 MG TABLET PO SCH ×2 (09:26→17:17)
[2017-02-28] MEDS ORDERED: CEFTRIAXONE 1 GM/D5W RTU 1 GM/50 ML RTUPB IV SCH (10:00)
--- NOTE | 2017-02-28 11:25 | PDOC PROGRESS REPORT ---
Subjective Progress Note for:: 02/28/17 Subjective:: Patient overall is feeling better. Denies chills or fever. No shortness of breath nor chest pain. No PND orthopnea. No increasing lower extremity edema. Patient feels hungry and wants to eat. Physical Exam Vital Signs: Temp Pulse Resp BP Pulse Ox 98.4 F 68 16 95/57 L 97 02/28/17 06:08 02/28/17 07:00 02/28/17 06:08 02/28/17 08:01 02/28/17 06:08 Intake & Output 02/27/17 02/28/17 03/01/17 06:59 06:59 06:59 Intake Total 1050 Balance 1050 Weight 70.5 kg General appearance: PRESENT: no acute distress, cooperative Head exam: PRESENT: normocephalic Eye exam: PRESENT: EOMI Mouth exam: PRESENT: moist, neck supple Neck exam: ABSENT: JVD Respiratory exam: PRESENT: clear to auscultation ninfa. ABSENT: rhonchi, wheezes Cardiovascular exam: PRESENT: systolic murmur - Left sternal border. ABSENT: gallop GI/Abdominal exam: PRESENT: normal bowel sounds, soft. ABSENT: distended, tenderness Extremities exam: ABSENT: pedal edema Neurological exam: PRESENT: alert, awake, oriented to situation Skin exam: PRESENT: dry, warm. ABSENT: cyanosis Results Laboratory Results: 02/28/17 04:24 02/28/17 04:24 02/28/17 02/28/17 04:24 04:24 WBC 4.8 RBC 2.92 L Hgb 9.6 L Hct 27.3 L MCV 94 MCH 32.7 MCHC 34.9 RDW 13.5 Plt Count 75 L Seg Neutrophils % Not Reportable Lymphocytes % Not Reportable Monocytes % Not Reportable Eosinophils % Not Reportable Basophils % Not Reportable Absolute Neutrophils Not Reportable Absolute Lymphocytes Not Reportable Absolute Monocytes Not Reportable Absolute Eosinophils Not Reportable Absolute Basophils Not Reportable Sodium 139.0 Potassium 4.1 Chloride 109 H Carbon Dioxide 21 L Anion Gap 9 BUN 14 Creatinine 0.86 Est GFR ( Amer) > 60 Est GFR (Non-Af Amer) > 60 Glucose 103 Calcium 7.9 L Total Bilirubin 1.6 H AST 34 ALT 33 Alkaline Phosphatase 170 H Total Protein 6.2 L Albumin 2.7 L Impressions: Chest X-Ray 02/27/17 00:00 IMPRESSION: NO ACUTE RADIOGRAPHIC FINDING IN THE CHEST. Assessment & Plan - Diagnosis (1) Bacteremia due to Gram-positive bacteria Is this a current diagnosis for this admission?: Yes (2) UTI (urinary tract infection) Qualifiers: Urinary tract infection type: site unspecified Is this a current diagnosis for this admission?: Yes (3) Anticoagulated Is this a current diagnosis for this admission?: Yes (4) History of aortic valve replacement with porcine valve Is this a current diagnosis for this admission?: Yes (5) Hypothyroidism Qualifiers: Hypothyroidism type: acquired Qualified Code(s): E03.9 - Hypothyroidism, unspecified Is this a current diagnosis for this admission?: Yes (6) Hyperlipidemia Qualifiers: Hyperlipidemia type: unspecified Qualified Code(s): E78.5 - Hyperlipidemia , unspecified Is this a current diagnosis for this admission?: Yes (7) Osteoarthritis Qualifiers: Osteoarthritis location: unspecified site Osteoarthritis type: unspecified Qualified Code(s): M19.90 - Unspecified osteoarthritis, unspecified site Is this a current diagnosis for this admission?: Yes (8) Atrial fibrillation Qualifiers: Atrial fibrillation type: chronic Qualified Code(s): I48.2 - Chronic atrial fibrillation Is this a current diagnosis for this admission?: Yes - Time Time Spent with patient: 25-34 minutes - Plan Summary Plan Summary: We are going to begin the patient on diet. We will resume Synthroid. Monitor creatinine. Decrease intravenous fluids. Recheck WBC. We will do one more set of blood culture. Consult cardiology for possible echocardiogram. Continue supportive care. Continue current antibiotics for now.
[2017-02-28] MEDS ORDERED: PIPERACILLIN SODIUM/TAZOBACTAM 3.375 GM in NORMAL SALINE 100 ML IV SCH (12:00)
[2017-02-28] MEDS: LEVOTHYROXINE SODIUM 0.05 MG TABLET PO SCH (12:16)
[2017-02-28] MEDS: NORMAL SALINE 1000 ML 1,000 ML IV PRN (14:20)
[2017-02-28] MEDS ORDERED: VANCOMYCIN HCL 1,000 MG in DEXTROSE 5%-WATER 250 ML IV ONE (15:00)
--- NOTE | 2017-02-28 16:09 | PDOC CONSULTATION ---
Consultation Consult Date: 02/28/17 Attending physician:: SHIRIN MCKENZIE Consult reason:: Positive blood culture, known history of valvular heart disease History of Present Illness Admission Date/PCP: 02/27/17 21:28 ANDRES KWOK MD Patient complains of: Fever with chills History of Present Illness: YUSUF SHEARER is a 66 year old female with medical history remarkable for mild arthritis, hyperlipidemia, hypothyroidism, atrial fibrillation, status post ablation for same, on Eliquis, status post porcine aortic valve replacement last year, with subsequent pericardiectomy in July of this year, both at [facility] who presents to the emergency room for the second time in approximately 24-36 hours for a number of complaints. Describes 3-4 day history of nausea and vomiting, along with fever and shaking chills in general not feeling well. Generalized weakness also. No diarrhea or dysuria, chest or abdominal pain. Last urinary tract infection was 1 year ago. No history of nephrolithiasis. Was seen in the emergency room the evening of the 6 with concern for possible urinary tract infection. Labs were noted. Was not felt to have such infection and was discharged home. Return with continued complaints. Blood cultures noted to be positive for gram-positive cocci. Mildly hypotensive in the emergency room, with pressures responding reasonably well to IV fluids. Currently resting quietly, stating she feels much better. This history obtained by Dr. Ford was reviewed, patient interviewed, history confirmed. Patient tells me that at time of aortic valve replacement, she had heart catheterization during which no blockages were noted therefore bypass surgery was not performed. Subsequently patient had some pericardiectomy. Exact reason for this was not known but we are requesting this records. Patient tells me that should she need to be transferred for further cardiac care she would like to be transferred to [facility]. Past Medical History Cardiac Medical History: Reports: Atrial Fibrillation - Treated with ablation, Hyperlipidema, Other - Valvular heart disease, status post aortic valve replacement with a biopros Denies: Congestive Heart Failure, Coronary Artery Disease, DVT, Myocardial Infarction, Hypertension, Pulmonary Embolism Pulmonary Medical History: Denies: Asthma, Chronic Obstructive Pulmonary Disease (COPD), Sleep Apnea EENT Medical History: Reports: Other - Easy bruising Denies: Throat Neurological Medical History: Denies: Hemorrhagic CVA, Ischemic CVA, Seizures Endocrine Medical History: Reports: Hypothyroidism Denies: Diabetes Mellitus Type 1, Diabetes Mellitus Type 2, Hyperthyroidism Renal/ Medical History: Reports: Other - Occasional urinary tract infection. Malignancy Medical History: Reports: Skin Cancer GI Medical History: Reports: Hiatal Hernia Denies: Cirrhosis, Hepatitis, Peptic Ulcer Disease Musculoskeltal Medical History: Reports: Arthritis Skin Medical History: Denies: Eczema, Psoriasis Psychiatric Medical History: Denies: Alcohol Dependency, Depression, General Anxiety Disorder, Substance Abuse, Tobacco Dependency Hematology: Reports: Other - Easy bruising Denies: Anemia, Sickle Cell Disease Infectious Medical History: Denies: Hepatitis B, Hepatitis C Past Surgical History Past Surgical History: Reports: Valve Replacement - Porcine aortic valve, Other - Ablation for fibrillation. Pericardiectomy, July 2016 Denies: Amputation, Hysterectomy, Mastectomy, Pacemaker Social History Information Source: Patient Lives with: Alone Smoking Status: Never Smoker Frequency of Alcohol Use: Rare Hx Recreational Drug Use: No Drugs: None Hx Prescription Drug Abuse: No - Advance Directive Resuscitation Status: Full Code Surrogate healthcare decision maker:: Patient's children are surrogate decision-maker Family History Family History: Reviewed & Not Pertinent Parental Family History Reviewed: Yes Children Family History Reviewed: Yes Sibling(s) Family History Reviewed.: Yes - Negative for premature coronary artery disease or sudden cardiac in the family amongst first degree relatives. Medication/Allergy Home Medications: Apixaban [Eliquis] 5 mg PO Q12 02/27/17 Atorvastatin Calcium 10 mg PO QHS 02/27/17 Ibandronate Sodium [Boniva] 150 mg PO [id number] 02/27/17 Levothyroxine Sodium [Synthroid] 125 mcg PO DAILY 02/27/17 Allergies/Adverse Reactions: codeine [Codeine] Allergy (Mild, Verified 02/27/17 21:33) Hyperactivity Iodinated Contrast- Oral and IV Dye [IV Dye, Iodine Containing] Allergy ( Verified 02/27/17 15:00) nitrofurantoin [From Macrobid] Allergy (Verified 02/27/17 15:00) nitrofurantoin macrocrystalline [From Macrobid] Allergy (Verified 02/27/17 15:00 ) Review of Systems Review of Systems: Please see history of present illness and past medical history as wall. Constitutional: Significant fever or chills reported. Head : No recent chronic headaches, recent head injury. Eyes: No recent eye pain, diplopia, redness, discharge, acute visual changes. Ears: No recent chronic ear pain, acute hearing loss, ear discharge. Oral cavity: No recent ulcerations, bleeding, oral cavity discomfort. Neck: No recent acute neck pain reported. Hematologic: No recent easy bruising or bleeding or hematologic malignancy reported. Lymphatic: No recent lymphatic malignancy, chronic lymphadenopathy reported yet Cardiovascular system review: See history of present illness. Respiratory system review: No recent chronic cough, hemoptysis, blood clots in the lungs reported. Mild Shortness of breath on exertion Gastrointestinal system review: Negative for any recent acute or chronic abdominal pain, hematemesis, melena, recent change in bowel habits. Genitourinary system review: No recent acute or chronic hematuria, flank pain. Suspected to have UTI recently. Skin system review: Negative for any recent abnormal bruising, no rash, no pruritus reported. Neurologic: No prior history of strokes, mini strokes, seizure disorder. Psychologic: No history of major psychosis or major depression reported. Musculoskeletal: Minor aches and pains reported. No acute joint swelling reported. Endocrine: No recent polyuria, polydipsia, recent heat or cold intolerance. Physical Exam Vital Signs: Temp Pulse Resp BP Pulse Ox 98.4 F 75 16 95/59 L 97 02/28/17 06:08 02/28/17 14:00 02/28/17 06:08 02/28/17 09:00 02/28/17 06:08 Intake & Output 02/27/17 02/28/17 03/01/17 06:59 06:59 06:59 Intake Total 1050 Balance 1050 Weight 70.5 kg Exam: GENERAL: well-nourished and in no acute distress. Alert and oriented x3 HEAD: Atraumatic, normocephalic. EYES: Pupils equal round and reactive to light, extraocular movements intact, sclera anicteric, conjunctiva are normal. ENT: TMs normal, nares patent, oropharynx clear without exudates. Moist mucous membranes. No oral ulcerations or bleeding gums noted NECK: supple without lymphadenopathy. Trachea is central. No cervical or axillary lymphadenopathy noted. Carotids are 2+, JVD WNL LUNGS: Respiration seems nonlabored, no significant accessory muscle action noted. Breath sounds clear to auscultation bilaterally and equal noted. No wheezes rales or rhonchi noted. No significant dullness noted on percussion. CHEST: Palpation of the chest wall shows no significant chest wall tenderness. No other significant abnormalities noted. 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 ABDOMEN: Soft, no significant tenderness appreciated, normoactive bowel sounds. No guarding, no rebound. No rigidity noted . No masses appreciated. EXTREMITIES: Pedal pulses are 1-2+, no calf tenderness noted. No clubbing or cyanosis.trace pedal edema noted NEUROLOGICAL: Focused neurological exam showed no significant neurologic deficit. Normal speech, no focal weakness appreciated. PSYCH: Normal mood, normal affect. Judgment and insight within normal limits. SKIN: No significant ecchymosis, rash, ulcerations or signs of pruritus noted. MUSCULOSKELETAL EXAM: No significant joint swelling noted. Results Laboratory Results: 02/28/17 04:24 02/28/17 04:24 02/28/17 02/28/17 04:24 04:24 WBC 4.8 RBC 2.92 L Hgb 9.6 L Hct 27.3 L MCV 94 MCH 32.7 MCHC 34.9 RDW 13.5 Plt Count 75 L Seg Neutrophils % Not Reportable Lymphocytes % Not Reportable Monocytes % Not Reportable Eosinophils % Not Reportable Basophils % Not Reportable Absolute Neutrophils Not Reportable Absolute Lymphocytes Not Reportable Absolute Monocytes Not Reportable Absolute Eosinophils Not Reportable Absolute Basophils Not Reportable Sodium 139.0 Potassium 4.1 Chloride 109 H Carbon Dioxide 21 L Anion Gap 9 BUN 14 Creatinine 0.86 Est GFR ( Amer) > 60 Est GFR (Non-Af Amer) > 60 Glucose 103 Calcium 7.9 L Total Bilirubin 1.6 H AST 34 ALT 33 Alkaline Phosphatase 170 H Total Protein 6.2 L Albumin 2.7 L EKG Comments: Sinus rhythm, incomplete right bundle branch block pattern. No acute ST-T wave changes noted. Impressions: Chest X-Ray 02/27/17 00:00 IMPRESSION: NO ACUTE RADIOGRAPHIC FINDING IN THE CHEST. Assessment & Plan - Diagnosis (1) Bacteremia due to Gram-positive bacteria Is this a current diagnosis for this admission?: Yes (3) Hyperlipidemia Qualifiers: Hyperlipidemia type: unspecified Qualified Code(s): E78.5 - Hyperlipidemia , unspecified Is this a current diagnosis for this admission?: Yes (4) Hypotension Qualifiers: Hypotension type: unspecified hypotension type Qualified Code(s): I95.9 - Hypotension, unspecified Is this a current diagnosis for this admission?: Yes (5) History of aortic valve replacement with porcine valve Is this a current diagnosis for this admission?: Yes (6) History of atrial fibrillation Is this a current diagnosis for this admission?: Yes - Notes Notes: Gram-positive bacteremia: No likely source noted. Awaiting further identification of gram positive cocci in cluster. There is suspicion of endocarditis. Have therefore obtained multiple other blood cultures. Should patient have continuous bacteremia, then patient may need to be empirically treated for endocarditis. Continue antibiotics. Fever: Exact etiology not clear but endocarditis is in the differential diagnosis. No peripheral signs of endocarditis however noted. Dyslipidemia: Continue statin therapy. Hypotension: Most likely related to bacteremia and sepsis. Currently improved. History of aortic valve replacement with a bioprosthetic valve: Will obtain a 2D echo to evaluate this further. History of atrial fibrillation: Patient is status post ablation. Currently maintaining sinus rhythm. - Time Time Spent: 30 to 50 Minutes - CODE STATUS was discussed, patient remains full code. Surrogate decision-maker unchanged. Multiple medical problems were addressed. More than 50% of the time spent coordinating care, discussing management plans with involved caregivers. Management plans discussed with involved personnels. Medical decision making was of moderate to high complexity , patient's has multiple comorbidities. Medications reviewed and adjusted accordingly: Yes
--- NOTE | 2017-02-28 16:54 | EKG REPORT ---
SEVERITY:- ABNORMAL ECG - SINUS RHYTHM PROBABLE LEFT ATRIAL ABNORMALITY LEFT AXIS DEVIATION LOW VOLTAGE IN FRONTAL LEADS BORDERLINE R WAVE PROGRESSION, ANTERIOR LEADS : Confirmed by: Tory Burnette MD 28-Feb-2017 16:53:35
[2017-02-28] MEDS: PIPERACILLIN SODIUM/TAZOBACTAM 3.375 GM in NORMAL SALINE 100 ML IV SCH (17:18)
[2017-02-28] MEDS: ATORVASTATIN CALCIUM 10 MG TABLET PO SCH (22:11)
[2017-02-28] MEDS: VANCOMYCIN HCL 1,000 MG in DEXTROSE 5%-WATER 250 ML IV SCH (22:13)
[2017-03-01] MEDS: PIPERACILLIN SODIUM/TAZOBACTAM 3.375 GM in NORMAL SALINE 100 ML IV SCH ×5 (00:11→23:47)
[2017-03-01 05:35] LABS: ANION GAP 9 (5-19); BLOOD UREA NITROGEN 12 mg/dL (7-20); CALCIUM 7.8 mg/dL (8.4-10.2); CARBON DIOXIDE 20 mmol/L (22-30); CHLORIDE 109 mmol/L (98-107); CREATININE RESULT 0.85 mg/dL (0.52-1.25); GLUCOSE 89 mg/dL (75-110); POTASSIUM 4.1 mmol/L (3.6-5.0); SODIUM 137.9 mmol/L (137-145)
[2017-03-01 05:41] LABS: HEMATOCRIT 27.3 % (36.0-47.0); HEMOGLOBIN 9.7 g/dL (12.0-15.5); HGB HCT DIFFERENCE 1.8; MEAN CORPUSCULAR HEMOGLOBIN 33.5 pg (27.0-33.4); MEAN CORPUSCULAR HGB CONC 35.4 g/dL (32.0-36.0); MEAN CORPUSCULAR VOLUME 94 fl (80-97); RED BLOOD COUNT 2.89 10^6/uL (3.72-5.28); RED CELL DISTRIBUTION WIDTH 13.2 % (11.5-14.0); WHITE BLOOD COUNT 5.2 10^3/uL (4.0-10.5)
[2017-03-01] MEDS: NORMAL SALINE 1000 ML 1,000 ML IV PRN (06:55)
[2017-03-01] MEDS ORDERED: (PENDING PHARMACY ID) (Levothyroxine Sodium [Synthroid] 125 MCG) PO SCH (10:00)
[2017-03-01] MEDS: APIXABAN 5 MG TABLET PO SCH ×2 (10:11→18:48)
--- NOTE | 2017-03-01 10:15 | PDOC PROGRESS REPORT ---
Subjective Progress Note for:: 03/01/17 Subjective:: Feels better this morning. No CP/SOB/diarrhea. No N/V/chills nor fever. Wants regular diet. Physical Exam Vital Signs: Temp Pulse Resp BP Pulse Ox 98.9 F 73 17 143/75 H 97 03/01/17 09:00 03/01/17 09:00 03/01/17 09:00 03/01/17 09:00 03/01/17 09:00 Intake & Output 02/28/17 03/01/17 03/02/17 06:59 06:59 06:59 Intake Total 1050 4150 Balance 1050 4150 Weight 70.5 kg General appearance: PRESENT: no acute distress, cooperative Head exam: PRESENT: normocephalic Eye exam: PRESENT: EOMI Mouth exam: PRESENT: moist, neck supple Neck exam: ABSENT: JVD Respiratory exam: PRESENT: clear to auscultation ninfa. ABSENT: rhonchi, wheezes Cardiovascular exam: PRESENT: irregular rhythm, systolic murmur - left sternal boarder GI/Abdominal exam: PRESENT: normal bowel sounds, soft. ABSENT: distended, tenderness Extremities exam: ABSENT: pedal edema Neurological exam: PRESENT: alert, awake, oriented to situation Skin exam: PRESENT: dry, warm. ABSENT: cyanosis Results Laboratory Results: 03/01/17 04:11 03/01/17 04:11 03/01/17 03/01/17 04:11 04:11 WBC 5.2 RBC 2.89 L Hgb 9.7 L Hct 27.3 L MCV 94 MCH 33.5 H MCHC 35.4 RDW 13.2 Plt Count 77 L Sodium 137.9 Potassium 4.1 Chloride 109 H Carbon Dioxide 20 L Anion Gap 9 BUN 12 Creatinine 0.85 Est GFR ( Amer) > 60 Est GFR (Non-Af Amer) > 60 Glucose 89 Calcium 7.8 L Impressions: Chest X-Ray 02/27/17 00:00 IMPRESSION: NO ACUTE RADIOGRAPHIC FINDING IN THE CHEST. Assessment & Plan - Diagnosis (1) Bacteremia due to Gram-positive bacteria Is this a current diagnosis for this admission?: Yes (2) UTI (urinary tract infection) Qualifiers: Urinary tract infection type: site unspecified Is this a current diagnosis for this admission?: Yes (3) Anticoagulated Is this a current diagnosis for this admission?: Yes (4) History of aortic valve replacement with porcine valve Is this a current diagnosis for this admission?: Yes (5) Hypothyroidism Qualifiers: Hypothyroidism type: acquired Qualified Code(s): E03.9 - Hypothyroidism, unspecified Is this a current diagnosis for this admission?: Yes (6) Hyperlipidemia Qualifiers: Hyperlipidemia type: unspecified Qualified Code(s): E78.5 - Hyperlipidemia , unspecified Is this a current diagnosis for this admission?: Yes (7) Osteoarthritis Qualifiers: Osteoarthritis location: unspecified site Osteoarthritis type: unspecified Qualified Code(s): M19.90 - Unspecified osteoarthritis, unspecified site Is this a current diagnosis for this admission?: Yes (8) Atrial fibrillation Qualifiers: Atrial fibrillation type: chronic Qualified Code(s): I48.2 - Chronic atrial fibrillation Is this a current diagnosis for this admission?: Yes - Time Time Spent with patient: 25-34 minutes - Plan Summary Plan Summary: Continue antibiotics. Follow cultures. Await echocardiogram. May need SABAS. We will arrange for PICC line.
[2017-03-01] MEDS: VANCOMYCIN HCL 1,000 MG in DEXTROSE 5%-WATER 250 ML IV SCH ×2 (10:24→21:32)
[2017-03-01] MEDS: DOCUSATE SODIUM 100 MG CAPSULE PO SCH ×2 (10:34→18:52)
[2017-03-01] MEDS: LEVOTHYROXINE SODIUM 0.05 MG TABLET PO SCH (11:17)
[2017-03-01] MEDS ORDERED: INFLUENZA ADLT QUAD (36MOS+) 2017-18 VAC 0.5 ML SYR IM PRN (16:17)
--- NOTE | 2017-03-01 19:37 | PDOC PROGRESS REPORT ---
Subjective Progress Note for:: 03/01/17 Subjective:: Patient seems to be doing better with gradual improvement. Pt is denying any chest arm or neck discomfort. Patient denying any PND, orthopnea. Patient denied any sustained palpitations, dizziness, syncope, near syncope. Patient denying any fever chills. Patient denying any other significant discomfort. Patient is maintaining sinus rhythm. Review of systems: Rest review of systems negative. Medications: Medications have been reviewed. Physical Exam Vital Signs: Temp Pulse Resp BP Pulse Ox 98.9 F 66 17 116/69 100 03/01/17 09:00 03/01/17 16:15 03/01/17 09:00 03/01/17 19:01 03/01/17 11:00 Intake & Output 02/28/17 03/01/17 03/02/17 06:59 06:59 06:59 Intake Total 1050 4150 1600 Balance 1050 4150 1600 Weight 70.5 kg Exam: GENERAL: well-nourished and in no acute distress. Alert and oriented x3 HEAD: Atraumatic, normocephalic. EYES: Pupils equal round and reactive to light, extraocular movements intact, sclera anicteric, conjunctiva are normal. ENT: TMs normal, nares patent, oropharynx clear without exudates. Moist mucous membranes. No oral ulcerations or bleeding gums noted NECK: supple without lymphadenopathy. Trachea is central. No cervical or axillary lymphadenopathy noted. Carotids are 2+, JVD WNL LUNGS: Respiration seems nonlabored, no significant accessory muscle action noted. Breath sounds clear to auscultation bilaterally and equal noted. No wheezes rales or rhonchi noted. No significant dullness noted on percussion. CHEST: Palpation of the chest wall shows no significant chest wall tenderness. No other significant abnormalities noted. 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 ABDOMEN: Soft, no significant tenderness appreciated, normoactive bowel sounds. No guarding, no rebound. No rigidity noted . No masses appreciated. EXTREMITIES: Pedal pulses are 1-2+, no calf tenderness noted. No clubbing or cyanosis.trace pedal edema noted NEUROLOGICAL: Focused neurological exam showed no significant neurologic deficit. Normal speech, no focal weakness appreciated. PSYCH: Normal mood, normal affect. Judgment and insight within normal limits. SKIN: No significant ecchymosis, rash, ulcerations or signs of pruritus noted. MUSCULOSKELETAL EXAM: No significant joint swelling noted. Results Laboratory Results: 03/01/17 04:11 03/01/17 04:11 03/01/17 03/01/17 03/01/17 04:11 04:11 04:11 WBC 5.2 RBC 2.89 L Hgb 9.7 L Hct 27.3 L MCV 94 MCH 33.5 H MCHC 35.4 RDW 13.2 Plt Count 77 L Sodium 137.9 Potassium 4.1 Chloride 109 H Carbon Dioxide 20 L Anion Gap 9 BUN 12 Creatinine 0.85 Est GFR ( Amer) > 60 Est GFR (Non-Af Amer) > 60 Glucose 89 Calcium 7.8 L Free T4 2.13 EKG Comments: Telemetry strips shows patient maintaining sinus rhythm. Impressions: Chest X-Ray 02/27/17 00:00 IMPRESSION: NO ACUTE RADIOGRAPHIC FINDING IN THE CHEST. Assessment & Plan - Diagnosis (1) Bacteremia due to Gram-positive bacteria Is this a current diagnosis for this admission?: Yes (3) Hyperlipidemia Qualifiers: Hyperlipidemia type: unspecified Qualified Code(s): E78.5 - Hyperlipidemia , unspecified Is this a current diagnosis for this admission?: Yes (4) Hypotension Qualifiers: Hypotension type: unspecified hypotension type Qualified Code(s): I95.9 - Hypotension, unspecified Is this a current diagnosis for this admission?: Yes (5) History of aortic valve replacement with porcine valve Is this a current diagnosis for this admission?: Yes (6) History of atrial fibrillation Is this a current diagnosis for this admission?: Yes - Notes Notes: Gram-positive bacteremia: No likely source noted. Awaiting further identification of gram positive cocci in cluster. There is high suspicion of endocarditis. Have therefore obtained multiple other blood cultures. Should patient have continuous bacteremia, then patient may need to be empirically treated for endocarditis. Continue antibiotics. Fever: Exact etiology not clear but endocarditis is in the differential diagnosis. No peripheral signs of endocarditis however noted. Dyslipidemia: Continue statin therapy. Hypotension: Most likely related to bacteremia and sepsis. Currently improved. History of aortic valve replacement with a bioprosthetic valve: Will obtain a 2D echo to evaluate this further. History of atrial fibrillation: Patient is status post ablation. Currently maintaining sinus rhythm. Patient was seen and examined this morning on morning rounds.
--- NOTE | 2017-03-01 20:40 | XCELERA REPORT ---
[address] [address] Transthoracic Echocardiogram Report Name: YUSUF SHEARER Age: 66 yrs Gender: Female : 1950 Patient Status: Inpatient Patient Location: [facility]^A Study Date: 03/01/2017 08:46 AM Height: 65 in Weight: 155 lb BSA: 1.8 m2 Reason For Study: Evaluate for endocarditis Ordering Physician: JEAN VIDALES Performed By: Rhina Heaton Interpretation Summary Pt is post-pericardiectomy. Pt's [place] aortic valve is replaced by a stable bioprosthetic aortic valve with PPG 24 and MPG 13. and SHELBY 1.8cm2, with no AR, although valve leaflets min thickened, no obvious vegetation seen. MV appears normal with mild mitral annular calcification, no MS and only mild MR with no vegetation. and a severe LA enlargement, TANI is 67cc/m2. LV is not dilated and no hypertrophy, LVEF is 53% by biplane analysis, with LV diastolic dysfunction based on TDI. Mod hypokinesis is seen in the inferoseptum only. No LVenlargement, LVESD is 29mm and LVEDD is 50mm. RV function is impaired, TAPSE is 11.2 . No RVE, no GILES. RVSP is 49 mm Hg RAP assumed 8 . IVC 17mm MMode/2D Measurements & Calculations RVDd: 2.9 cm LVIDd: 5.0 cm FS: 35.3 % Ao root diam: IVSd: 0.79 cm LVIDs: 3.3 cm EDV(Teich): 120.6 ml 3.3 cm LVPWd: 0.85 cm ESV(Teich): 42.9 ml Ao root area: EF(Teich): 64.4 % 8.3 cm2 LA dimension: 4.6 cm LVOT diam: LVLd ap4: 6.5 cm SV(MOD-sp4): 30.0 ml 2.0 cm EDV(MOD-sp4): LA A2Cs: 32.6 cm2 LVOT area: 56.0 ml LVLs ap4: 5.5 cm 3.1 cm2 ESV(MOD-sp4): 26.0 ml EF(MOD-sp4): 53.6 % LA A4Cs: LA length: 6.7 cm LA Vol Index (BP): LA Volume: 126.6 ml 30.7 cm2 71.3 ml/m2 Doppler Measurements & Calculations MV E max dennis: MV P1/2t max dennis: Ao V2 max: LV V1 max P.7 cm/sec 136.7 cm/sec 245.3 cm/sec 8.0 mmHg MV A max dennis: MV P1/2t: 51.5 msec Ao max PG: LV V1 mean P.0 cm/sec MVA(P1/2t): 4.3 cm2 24.1 mmHg 4.4 mmHg MV E/A: 3.6 MV dec slope: Ao V2 mean: LV V1 max: 169.1 cm/sec 141.7 cm/sec 778.2 cm/sec2 Ao mean PG: LV V1 mean: 13.1 mmHg 98.6 cm/sec Ao V2 VTI: 51.2 cm LV V1 VTI: SHELBY(I,D): 1.8 cm2 30.5 cm SHELBY(V,D): 1.8 cm2 SV(LVOT): 93.5 ml PA V2 max: PI end-d dennis: TR max dennis: 102.7 cm/sec 164.0 cm/sec 318.2 cm/sec PA max P.2 mmHg TR max P.5 mmHg Left Ventricle The left ventricle is normal in size, thickness and function. LV EF is 53%. The E/E' ratio between the mitral E wave and the mitral annulus E' wave is abnormal, with a value of > 10. There is inferoseptal wall moderate hypokinesis. There is no thrombus. Right Ventricle The right ventricle is grossly normal size. The right ventricular systolic function is mildly reduced. TAPSE 11.2mm reduced a.surrogate of RV function. Atria The right atrium is normal. The left atrium is severely dilated. The interatrial septum is intact with no evidence for an atrial septal defect. Mitral Valve The mitral valve is normal in structure and function. There is mild mitral annular calcification. There is no evidence of mitral valve prolapse. There is no vegetation seen on the mitral valve. There is no mitral valve stenosis. There is a mild amount of mitral regurgitation. Aortic Valve No aortic regurgitation is present. The prosthetic aortic valve appears to open well. The prosthetic aortic valve is well-seated. There is a bioprosthetic aortic valve. There are no vegetations on this prosthetic aortic valve. PPG24, MPG13. Tricuspid Valve The tricuspid valve is not well visualized, but is grossly normal. There is no tricuspid valve prolapse. There is no tricuspid valve vegetation. There is no tricuspid stenosis. There is a mild amount of tricuspid regurgitation. There is moderate pulmonary hypertension by echo. Best estimated right ventricular systolic pressure is elevated at 40-50mmHg. Pulmonic Valve The pulmonic valve is normal in structure and function. There is no vegetation on the pulmonic valve. There is a mild amount of pulmonic regurgitation. Great Vessels The aortic root is normal size. Effusions There is no pericardial effusion. I WMSI = 1.19 % Normal = 81 Segments Size X - Cannot 2 - 4 - 1-2 small Interpret 1 - Normal Hypokinetic 3 - AkineticDyskinetic 3-5 moderate 5 - 6-14 large Aneurysmal 15-16 diffuse : JEAN VIDALES > Tobi Kennedy
[2017-03-01] MEDS: ATORVASTATIN CALCIUM 10 MG TABLET PO SCH (21:32)
[2017-03-02] MEDS: NORMAL SALINE 1000 ML 1,000 ML IV PRN (01:46)
[2017-03-02] MEDS: PIPERACILLIN SODIUM/TAZOBACTAM 3.375 GM in NORMAL SALINE 100 ML IV SCH ×2 (05:39→12:03)
[2017-03-02] MEDS ORDERED: LEVOTHYROXINE SODIUM 0.1 MG TABLET PO SCH (06:00)
[2017-03-02] MEDS ORDERED: LEVOTHYROXINE SODIUM 0.025 MG TABLET PO SCH (06:00)
[2017-03-02] MEDS: APIXABAN 5 MG TABLET PO SCH (09:21)
[2017-03-02] MEDS: VANCOMYCIN HCL 1,000 MG in DEXTROSE 5%-WATER 250 ML IV SCH (09:22)
[2017-03-02] MEDS: DOCUSATE SODIUM 100 MG CAPSULE PO SCH (09:29)
[2017-03-02 11:49] VITALS: BP 119/60
[2017-03-02 11:50] LABS: CREATININE RESULT 0.73 mg/dL (0.52-1.25)
--- NOTE | 2017-03-02 13:36 | PDOC TRANSFER SUMMARY ---
General Admission Date/PCP: 02/27/17 21:28 ANDRES KWOK MD Transfer Date: 03/02/17 Accepting Facility: [facility] Accepting Physician: dr russ churchill Resuscitation Status: Full Code - Transfer Diagnosis (1) Bacteremia due to Gram-positive bacteria Is this a current diagnosis for this admission?: Yes Diagnosis Summary: Growing out gram-positive cocci from blood cultures. Preliminary report is that this is a staph aureus. Awaiting on sensitivities. (2) History of aortic valve replacement with porcine valve Is this a current diagnosis for this admission?: Yes Diagnosis Summary: Given the bacteremia there is concerned that transthoracic echocardiogram showed no obvious vegetations. She may have bacterial endocarditis. Culture since starting antibiotics so far have been negative. Patient needs a transesophageal echo and because of this is being transferred to [facility] as we do not have that service at our facility. (3) UTI (urinary tract infection) Is this a current diagnosis for this admission?: Yes Diagnosis Summary: Patient was initially diagnosed with a urinary tract infection however her urine cultures have been negative. (4) Abnormal TSH Is this a current diagnosis for this admission?: Yes Diagnosis Summary: Patient has a low TSH but normal T4. (5) History of atrial fibrillation Is this a current diagnosis for this admission?: Yes (6) Hyperlipidemia Is this a current diagnosis for this admission?: Yes (7) Osteoarthritis Is this a current diagnosis for this admission?: Yes (8) Thrombocytopenia Is this a current diagnosis for this admission?: Yes - Transfer Medications Home Medications: Apixaban [Eliquis] 5 mg PO Q12 02/27/17 Atorvastatin Calcium 10 mg PO QHS 02/27/17 Ibandronate Sodium [Boniva] 150 mg PO [id number] 02/27/17 Levothyroxine Sodium [Synthroid] 125 mcg PO DAILY 02/27/17 Transfer Medications: Current Medications Acetaminophen (Tylenol 325 Mg Tablet) 650 mg PO Q8HP PRN Stop: 03/29/17 21:32 Last Admin: 02/28/17 01:07 Dose: 650 mg Apixaban (Eliquis 5 Mg Tablet) 5 mg PO BID BARAK Stop: 03/30/17 09:59 Last Admin: 03/02/17 09:21 Dose: 5 mg Atorvastatin Calcium (Lipitor 10 Mg Tablet) 10 mg PO QHS BARAK Stop: 03/29/17 21:59 Last Admin: 03/01/17 21:32 Dose: 10 mg Docusate Sodium (Colace 100 Mg Capsule) 100 mg PO BID [facility] Stop: 03/30/17 09:59 Last Admin: 03/02/17 09:29 Dose: Not Given Piperacillin Sod/Tazobactam (Sod 3.375 gm/ Sodium Chloride) 100 mls @ 200 mls/ hr IV Q6 BARAK Stop: 03/07/17 17:59 Last Admin: 03/02/17 12:03 Dose: 3.375 gm Sodium Chloride (Nacl 0.9% 1000 Ml Iv Soln) 1,000 mls @ 100 mls/hr IV CONTINUOUS PRN PRN Reason: THIS MED IS NOT "PRN" Stop: 03/29/17 21:25 Last Admin: 03/02/17 01:46 Dose: 1,000 ml Vancomycin HCl 1,000 mg/ (Dextrose) 250 mls @ 166.667 mls/hr IV Q12 [facility] Stop: 03/07/17 21:59 Last Admin: 03/02/17 09:22 Dose: 1,000 mg Influenza Virus Vaccine Quadrival (Fluzone Adlt Quad [id number] Vac 0.5 Ml Syr) 0.5 ml IM .DISCHARGE PRN PRN Reason: THIS MED IS NOT "PRN" Stop: 03/31/17 16:16 Levothyroxine Sodium (Synthroid 0.1 Mg Tablet) 0.1 mg PO DAILY@0600 [facility] Stop: 04/01/17 05:59 Last Admin: 03/02/17 05:39 Dose: 0.1 mg Levothyroxine Sodium (Synthroid 0.025 Mg Tablet) 0.025 mg PO DAILY@0600 [facility] Stop: 04/01/17 05:59 Last Admin: 03/02/17 05:39 Dose: 0.025 mg Magnesium Hydroxide (Milk Of Magnesia 30 Ml Udcup) 30 ml PO HSP PRN Stop: 03/29/17 21:27 Promethazine HCl (Phenergan 25 Mg Tablet) 6.25 mg PO Q6HP PRN Stop: 03/29/17 21:32 Sodium Chloride (Saline Flush 2.5 Ml Monoject Prefil Syrin) 2.5 ml IV Q8 [facility]AK Stop: 03/29/17 21:59 Last Admin: 03/02/17 05:34 Dose: Not Given - Allergies Allergies/Adverse Reactions: codeine [Codeine] Allergy (Mild, Verified 02/27/17 21:33) Hyperactivity Iodinated Contrast- Oral and IV Dye [IV Dye, Iodine Containing] Allergy ( Verified 02/27/17 15:00) nitrofurantoin [From Macrobid] Allergy (Verified 02/27/17 15:00) nitrofurantoin macrocrystalline [From Macrobid] Allergy (Verified 02/27/17 15:00 ) - Diet/Activity Discharge Diet: Cardiac Discharge Activity: Activity As Tolerated Hospital Course Hospital Course: 66-year-old female who presented with nausea vomiting fever up to 103. The patient was initially thought to have a urinary tract infection. She was started empirically on vancomycin and Zosyn. Her cultures have grown out gram- positive cocci. Preliminary ID on this is a staph aureus. Sensitivities on this are pending at this time. The patient had history of a bioprosthetic aortic valve replaced a year ago and given this along with the bacteremia there is concern that the patient may have endocarditis. The patient had a transthoracic echocardiogram done which showed some thickening of the valve but no obvious vegetation. Because of this it was felt that the patient needed a transesophageal echocardiogram. That service is not offered at our facility and because of this we have decided to transfer to [facility] where she has had previous cardiac workup done. The patient was initially thought to possibly have a urinary tract infection however her urine cultures have been negative. The patient relates having an episode with injuring her nasal mucosa with a fingernail and she thinks that may be the source of her infection. Patient has no obvious source at this time present in her nares. Patient also has atrial fibrillation and has been in a normal sinus rhythm. The patient has been on Eliquis for anticoagulation. The patient was presented also was noted to have a suppressed TSH however her T4 was normal. No further action in regards to that has been taken during this hospitalization. The patient has no longer had any fevers. Her first 2 sets of blood cultures were positive however repeat blood cultures since then have been negative so far. The patient is on vancomycin and Zosyn. The patient is to be transferred to [facility] cardiology service. Dr. Russ Churchill is the accepting physician. Physical Exam Vital Signs: Temp Pulse Resp BP Pulse Ox 98.2 F 77 18 119/60 99 03/02/17 10:57 03/02/17 10:57 03/02/17 10:57 03/02/17 10:57 03/02/17 10:57 Intake & Output 03/01/17 03/02/17 03/03/17 06:59 06:59 06:59 Intake Total 4150 3240 480 Output Total 2800 Balance 4150 440 480 Weight 71 kg General appearance: PRESENT: no acute distress Eye exam: PRESENT: conjunctiva pink. ABSENT: scleral icterus Mouth exam: PRESENT: moist, tongue midline Neck exam: ABSENT: JVD Respiratory exam: PRESENT: clear to auscultation ninfa. ABSENT: rales, rhonchi, wheezes Cardiovascular exam: PRESENT: RRR, systolic murmur - 2/6 systolic murmur.. ABSENT: diastolic murmur, rubs GI/Abdominal exam: PRESENT: normal bowel sounds, soft. ABSENT: distended, guarding, mass, organolmegaly, rebound, tenderness Extremities exam: ABSENT: calf tenderness, clubbing, pedal edema Neurological exam: PRESENT: alert, awake, oriented to person, oriented to place , oriented to time, oriented to situation, CN II-XII grossly intact. ABSENT: motor sensory deficit Psychiatric exam: PRESENT: appropriate affect Skin exam: PRESENT: dry, intact, warm. ABSENT: cyanosis, rash Results Laboratory Results: 03/01/17 04:11 03/02/17 11:20 03/02/17 11:20 Creatinine 0.73 Est GFR ( Amer) > 60 Est GFR (Non-Af Amer) > 60 Impressions: Chest X-Ray 02/27/17 00:00 IMPRESSION: NO ACUTE RADIOGRAPHIC FINDING IN THE CHEST. Plan Discharge Plan: Patient is transferred to [facility] cardiology service. Dr. Russ Churchill is the accepting physician. Time Spent: Greater than 30 Minutes
--- NOTE | 2017-03-02 19:30 | PDOC PROGRESS REPORT ---
Subjective Progress Note for:: 03/02/17 Subjective:: Patient seems to be doing better with gradual improvement. Pt is denying any chest arm or neck discomfort. Patient denying any PND, orthopnea. Patient denied any sustained palpitations, dizziness, syncope, near syncope. Patient denying any fever chills. Patient denying any other significant discomfort. No peripheral signs of endocarditis noted. Patient did however informed me that she had a open sore inside the nostrils. Patient is maintaining sinus rhythm. Review of systems: Rest review of systems negative. Medications: Medications have been reviewed. Physical Exam Vital Signs: Temp Pulse Resp BP Pulse Ox 98.2 F 70 18 119/60 99 03/02/17 10:57 03/02/17 14:00 03/02/17 10:57 03/02/17 10:57 03/02/17 10:57 Intake & Output 03/01/17 03/02/17 03/03/17 06:59 06:59 06:59 Intake Total 4150 3240 480 Output Total 2800 Balance 4150 440 480 Weight 71 kg Results Laboratory Results: 03/01/17 04:11 03/02/17 11:20 03/02/17 11:20 Creatinine 0.73 Est GFR ( Amer) > 60 Est GFR (Non-Af Amer) > 60 Impressions: Chest X-Ray 02/27/17 00:00 IMPRESSION: NO ACUTE RADIOGRAPHIC FINDING IN THE CHEST. Assessment & Plan - Diagnosis (1) Bacteremia due to Gram-positive bacteria Is this a current diagnosis for this admission?: Yes (3) Hyperlipidemia Qualifiers: Hyperlipidemia type: unspecified Qualified Code(s): E78.5 - Hyperlipidemia , unspecified Is this a current diagnosis for this admission?: Yes (4) Hypotension Qualifiers: Hypotension type: unspecified hypotension type Qualified Code(s): I95.9 - Hypotension, unspecified Is this a current diagnosis for this admission?: Yes (5) History of aortic valve replacement with porcine valve Is this a current diagnosis for this admission?: Yes (6) History of atrial fibrillation Is this a current diagnosis for this admission?: Yes - Notes Notes: Bacteremia: Staph aureus grew. Patient to have transesophageal echocardiogram. Patient to be transferred to tertiary care for that reason. Patient does have prosthetic valve, bioprosthetic as well as a stented graft. Fever: Currently resolved. Dyslipidemia: Continue current therapy. Hypotension: Possibly related to bacteremia. Currently resolved. Aortic valve replacement with bioprosthetic valve: Echocardiogram report reviewed. History of atrial fibrillation: Currently maintaining sinus rhythm. Continue chronic anticoagulation. - Time Time with patient: 15-25 minutes - CODE STATUS was discussed, patient remains full code. Surrogate decision-maker unchanged. Multiple medical problems were addressed. More than 50% of the time spent coordinating care, discussing management plans with involved caregivers. Management plans discussed with involved personnels. Medical decision making was of moderate to high complexity , patient's has multiple comorbidities. Medications reviewed and adjusted accordingly: Yes
== END 2017-03-02 16:36 | disposition short-term general hospital (02) | DRG 690 ==
LOC: ER 14:57 → UNDOADMIN 19:47 → EH 19:47 → 3N 02-28 01:50
PROVIDERS: ADMIT Family Medicine; ATTEND Family Medicine
DX: N39.0 Urinary tract infection, site not specified (principal); B96.89 Other specified bacterial agents as the cause of diseases classified elsewhere; I48.2 Chronic atrial fibrillation; E78.5 Hyperlipidemia, unspecified; M19.90 Unspecified osteoarthritis, unspecified site; D69.6 Thrombocytopenia, unspecified; E03.9 Hypothyroidism, unspecified; I45.10 Unspecified right bundle-branch block; I95.9 Hypotension, unspecified; E78.00 Pure hypercholesterolemia, unspecified; Z60.2 Problems related to living alone; Z95.2 Presence of prosthetic heart valve; Z79.899 Other long term (current) drug therapy; Z88.6 Allergy status to analgesic agent; Z88.3 Allergy status to other anti-infective agents; Z91.041 Radiographic dye allergy status; Z85.828 Personal history of other malignant neoplasm of skin; Z79.01 Long term (current) use of anticoagulants; Z90.710 Acquired absence of both cervix and uterus; Z90.10 Acquired absence of unspecified breast and nipple; Z95.0 Presence of cardiac pacemaker
CPT/HCPCS: 36415; 71010; 80048; 80053; 81001; 82565; 82803; 82962; 83605; 83735; 84439; 84443; 85025; 85027; 85610; 87040; 87077; 87086; 87186; 93005; 93010; 93306; 96365; 96367; 96375; 99283; 99285; J0696; J1642; J2405; J2543; J3370; J3490; J7030; J7060

== ENCOUNTER 2017-06-09 12:53 | Emergency (ER) | payer MEDICARE, OTHER ==
--- NOTE | 2017-06-09 15:30 | ER Document Report ---
ED Medical Screen (RME) - General Chief Complaint: Abnormal Lab Results Stated Complaint: ABNORMAL LAB RESULTS Time Seen by Provider: 06/09/17 14:56 Notes: This 67-year-old female patient is sent to the emergency room by her daughter from [place] for possible positive blood culture. 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 She had been on an 8 week course of antibiotics that was unsuccessful, but then on reevaluation was found to have a pocket or nidus of infection at an aortic repair site. This was surgically cleaned out and the patient was placed on another 8 weeks of antibiotic treatment. Last week on about Wednesday or she had negative blood cultures at [place]. Over the weekend she had contact with a 5-year-old grandchild, on Wednesday she began running a low-grade fever, but she got her last dose of antibiotics late Wednesday night. She had blood cultures done through the PICC line and from her right wrist. These were done on 06/06/2017. The 2 drawn from the PICC line were negative for growth, 1 of the cultures from the wrist has been positive for staph aureus, on a preliminary report. This is very likely going to be a contaminant based on the history and the low- grade fever may be related to all the viral illnesses present in the population at this point in time. She will be evaluated in the main ED, repeat set of cultures will be done and her ID physicians at [place] can be consulted for further management. I have greeted and performed a rapid initial assessment of this patient. A comprehensive ED assessment and evaluation of the patient, analysis of test results and completion of the medical decision making process will be conducted by additional ED providers. TRAVEL OUTSIDE OF THE [place] IN LAST 30 DAYS: No - Related Data Allergies/Adverse Reactions: codeine [Codeine] Allergy (Mild, Verified 06/09/17 12:55) Hyperactivity Iodinated Contrast- Oral and IV Dye [IV Dye, Iodine Containing] Allergy ( Verified 06/09/17 12:55) nitrofurantoin [From Macrobid] Allergy (Verified 06/09/17 12:55) nitrofurantoin macrocrystalline [From Macrobid] Allergy (Verified 06/09/17 12:55 ) Past Medical History - Social History Chew tobacco use (# tins/day): No Frequency of alcohol use: None Drug Abuse: None - Past Medical History Cardiac Medical History: Reports: Hx Atrial Fibrillation - Treated with ablation , Hx Hypercholesterolemia Denies: Hx Congestive Heart Failure, Hx Coronary Artery Disease, Hx DVT, Hx Heart Attack, Hx Hypertension, Hx Pulmonary Embolism Pulmonary Medical History: Denies: Hx Asthma, Hx COPD, Hx Sleep Apnea Neurological Medical History: Denies: Hx Cerebrovascular Accident, Hx Seizures Endocrine Medical History: Reports: Hx Hypothyroidism. Denies: Hx Diabetes Mellitus Type 1, Hx Diabetes Mellitus Type 2, Hx Hyperthyroidism Renal/ Medical History: Denies: Hx Peritoneal Dialysis Malignancy Medical History: Reports: Hx Skin Cancer GI Medical History: Reports: Hx Hiatal Hernia. Denies: Hx Cirrhosis, Hx Hepatitis, Hx Ulcer Musculoskeltal Medical History: Reports Hx Arthritis Skin Medical History: Denies Hx Eczema, Denies Hx Psoriasis Psychiatric Medical History: Denies: Hx Depression Infectious Medical History: Denies: Hx Hepatitis Past Surgical History: Reports: Hx Cardiac Surgery - valve replacement, Hx Valve Replacement - Porcine aortic valve, Other - Ablation for fibrillation. Pericardiectomy, July 2016. Denies: Hx Hysterectomy, Hx Mastectomy, Hx Open Heart Surgery, Hx Pacemaker - Immunizations History of Influenza Vaccine for 02/2017 - 07/2017 Season: No Physical Exam - Vital signs Vitals: Temp Pulse Resp BP Pulse Ox 98.4 F 111 H 17 121/76 98 06/09/17 12:57 06/09/17 12:57 06/09/17 12:57 06/09/17 12:57 06/09/17 12:57 Course - Vital Signs Vital signs: Temp Pulse Resp BP Pulse Ox 98.4 F 111 H 17 121/76 98 06/09/17 12:57 06/09/17 12:57 06/09/17 12:57 06/09/17 12:57 06/09/17 12:57
[2017-06-09 15:48] LABS: ABSOLUTE EOSINOPHILS # (AUTO) 0.1 10^3/uL (0.0-0.6); ABSOLUTE MONOCYTES (AUTO) 0.6 10^3/uL (0.1-1.4); ABSOLUTE NEUT (AUTO) 5.1 10^3/uL (1.7-8.2); BASOPHILS % (AUTO) 0.2 % (0-2); EOSINOPHILS % (AUTO) 1.2 % (0-6); HEMATOCRIT 33.4 % (36.0-47.0); HEMOGLOBIN 11.3 g/dL (12.0-15.5); LYMPHOCYTES % (AUTO) 14.6 % (13-45); MEAN CORPUSCULAR HEMOGLOBIN 30.7 pg (27.0-33.4); MEAN CORPUSCULAR HGB CONC 33.8 g/dL (32.0-36.0); MEAN CORPUSCULAR VOLUME 91 fl (80-97); MONOCYTES % (AUTO) 9.4 % (3-13); PLATELET COUNT 171 10^3/uL (150-450); RED BLOOD COUNT 3.67 10^6/uL (3.72-5.28); RED CELL DISTRIBUTION WIDTH 14.4 % (11.5-14.0); SEGMENTED NEUTROPHILS % (AUTO) 74.6 % (42-78); TOTAL CELLS COUNTED % (AUTO) 100 %; WHITE BLOOD COUNT 6.8 10^3/uL (4.0-10.5)
[2017-06-09 16:08] LABS: ALANINE AMINOTRANSFERASE 25 U/L (9-52); ALKALINE PHOSPHATASE 130 U/L (38-126); ANION GAP 9 (5-19); ASPARTATE AMINO TRANSFERASE 31 U/L (14-36); BILIRUBIN,DIRECT 0.3 mg/dL (0.0-0.4); BILIRUBIN,TOTAL 0.5 mg/dL (0.2-1.3); BLOOD UREA NITROGEN 20 mg/dL (7-20); CALCIUM 9.7 mg/dL (8.4-10.2); CARBON DIOXIDE 29 mmol/L (22-30); CHLORIDE 101 mmol/L (98-107); GLUCOSE 107 mg/dL (75-110); POTASSIUM 4.3 mmol/L (3.6-5.0); SODIUM 139.4 mmol/L (137-145); TOTAL PROTEIN 8.8 g/dL (6.3-8.2)
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
[2017-06-09] MEDS ORDERED: CEFAZOLIN 2 GM/D5W RTU 2 GM/50 ML RTUPB IV SCH ×2 (18:00→19:00)
--- NOTE | 2017-06-09 19:45 | RADIOLOGY REPORT (SQ) ---
EXAM DESCRIPTION: CHEST PA/LAT COMPLETED DATE/TIME: 06/09/2017 7:36 pm REASON FOR STUDY: fever, h/o endocarditis COMPARISON: 2009. 02/27/2017. TECHNIQUE: Frontal and lateral radiographic views of the chest acquired. NUMBER OF VIEWS: Two view. LIMITATIONS: None. FINDINGS: LUNGS AND PLEURA: Slightly hyperinflated but generally clear. No acute infiltrate. No newton spicious opacities or pneumothorax. MEDIASTINUM AND HILAR STRUCTURES: Stable contours. Sternal wires intact with valve artifact noted. HEART AND VASCULAR STRUCTURES: Normal heart size. No failure. BONES: No acute findings. HARDWARE: None in the chest. OTHER: No other significant finding. IMPRESSION: No acute cardiopulmonary disease. TECHNICAL DOCUMENTATION: JOB ID: [id number] [employer]- All Rights Reserved
[2017-06-09 19:57] LABS: APPEARANCE,URINE CLEAR; BILIRUBIN,URINE NEGATIVE (NEGATIVE); COLOR,URINE YELLOW; GLUCOSE, URINE NEGATIVE (NEGATIVE); KETONES,URINE NEGATIVE (NEGATIVE); LEUKOCYTE ESTERASE,URINE NEGATIVE (NEGATIVE); NITRITE,URINE NEGATIVE (NEGATIVE); PROTEIN,URINE NEGATIVE (NEGATIVE); URINE SPECIFIC GRAVITY 1.011; UROBILINOGEN,URINE NEGATIVE mg/dL (<2.0)
[2017-06-10] MEDS ORDERED: CEFAZOLIN 2 GM/D5W RTU 2 GM/50 ML RTUPB IV SCH ×2 (02:00→10:00)
[2017-06-10] MEDS ORDERED: ATORVASTATIN CALCIUM 10 MG TABLET PO ONE (02:33)
[2017-06-10] MEDS ORDERED: APIXABAN 5 MG TABLET PO ONE (02:33)
[2017-06-10 07:03] LABS: ABSOLUTE EOSINOPHILS # (AUTO) 0.2 10^3/uL (0.0-0.6); ABSOLUTE MONOCYTES (AUTO) 0.6 10^3/uL (0.1-1.4); ABSOLUTE NEUT (AUTO) 4.1 10^3/uL (1.7-8.2); BASOPHILS % (AUTO) 0.3 % (0-2); EOSINOPHILS % (AUTO) 2.8 % (0-6); HEMATOCRIT 31.9 % (36.0-47.0); HEMOGLOBIN 10.8 g/dL (12.0-15.5); LYMPHOCYTES % (AUTO) 17.2 % (13-45); MEAN CORPUSCULAR HEMOGLOBIN 30.6 pg (27.0-33.4); MEAN CORPUSCULAR HGB CONC 33.8 g/dL (32.0-36.0); MEAN CORPUSCULAR VOLUME 91 fl (80-97); MONOCYTES % (AUTO) 10.6 % (3-13); PLATELET COUNT 171 10^3/uL (150-450); RED BLOOD COUNT 3.53 10^6/uL (3.72-5.28); RED CELL DISTRIBUTION WIDTH 14.7 % (11.5-14.0); SEGMENTED NEUTROPHILS % (AUTO) 69.1 % (42-78); TOTAL CELLS COUNTED % (AUTO) 100 %
[2017-06-10 07:17] LABS: ALANINE AMINOTRANSFERASE 22 U/L (9-52); ALBUMIN 3.9 g/dL (3.5-5.0); ALKALINE PHOSPHATASE 129 U/L (38-126); ANION GAP 11 (5-19); ASPARTATE AMINO TRANSFERASE 29 U/L (14-36); BILIRUBIN,DIRECT 0.3 mg/dL (0.0-0.4); BILIRUBIN,TOTAL 0.4 mg/dL (0.2-1.3); BLOOD UREA NITROGEN 18 mg/dL (7-20); CALCIUM 9.4 mg/dL (8.4-10.2); CARBON DIOXIDE 26 mmol/L (22-30); CHLORIDE 103 mmol/L (98-107); GLUCOSE 121 mg/dL (75-110); POTASSIUM 4.3 mmol/L (3.6-5.0); SODIUM 140.2 mmol/L (137-145); TOTAL PROTEIN 8.4 g/dL (6.3-8.2)
[2017-06-10] MEDS ORDERED: CEFAZOLIN 2 GM/D5W RTU 2 GM/50 ML RTUPB IV ONE (10:00)
[2017-06-10] MEDS ORDERED: APIXABAN 5 MG TABLET PO SCH (14:45)
[2017-06-10] MEDS ORDERED: ATORVASTATIN CALCIUM 10 MG TABLET PO SCH (14:45)
[2017-06-10] MEDS ORDERED: ASPIRIN 81 MG TABLET, ENT COATED PO SCH (15:00)
--- NOTE | 2017-06-10 19:23 | XCELERA REPORT ---
[address] [address] Transthoracic Echocardiogram Report Name: YUSUF SHEARER Age: 67 yrs Gender: Female : 1950 Patient Status: Emergency Patient Location: ER Study Date: 06/10/2017 11:15 AM Height: 65 in Weight: 142 lb BSA: 1.7 m2 Reason For Study: eval for edocarditis Ordering Physician: STEPHEN BLANCHARD PA-C Performed By: Lorenza Clemente Interpretation Summary Pt has a bioprosthetic AV, now presenting with positive bacteremia. see short axis of aortic valve. There is a separation between aortic annulus and aortic ring, significance unknown, need to compare with early post implant Aortic prosthesis to assess significance, to r/o ring abscess. Otherwise aortic prosthesis is functioning properly, no AR seen. peak AV velocity 1.67m/sec not increased.and leaflet thrombosis not seen on this TTE. MMode/2D Measurements & Calculations RVDd: 2.6 cm LVIDd: 4.1 cm FS: 39.0 % Ao root diam: IVSd: 0.86 cm LVIDs: 2.5 cm EDV(Teich): 2.8 cm LVPWd: 0.90 cm 76.4 ml Ao root area: ESV(Teich): 23.0 ml 6.2 cm2 EF(Teich): 69.9 % LVOT diam: EDV(MOD-sp4): SV(MOD-sp4): 2.3 cm 78.0 ml 50.7 ml LVOT area: ESV(MOD-sp4): 4.1 cm2 27.3 ml EF(MOD-sp4): 65.0 % Doppler Measurements & Calculations MV E max dennis: MV dec slope: Ao V2 max: LV V1 max P.1 cm/sec 150.0 cm/sec 6.2 mmHg MV A max dennis: 629.9 cm/sec2 Ao max PG: LV V1 mean P.5 cm/sec MV dec time: 9.0 mmHg 3.7 mmHg MV E/A: 1.7 0.16 sec Ao V2 mean: LV V1 max: 105.2 cm/sec 124.8 cm/sec Ao mean PG: LV V1 mean: 5.2 mmHg 89.5 cm/sec Ao V2 VTI: 28.9 cmLV V1 VTI: 25.6 cm SHELBY(I,D): 3.7 cm2 SHELBY(V,D): 3.5 cm2 SV(LVOT): 106.0 ml PA V2 max: PI end-d dennis: TR max dennis: 92.6 cm/sec 116.8 cm/sec 250.1 cm/sec PA max P.4 mmHg TR max P.0 mmHg Left Ventricle The left ventricle is grossly normal size. There is normal left ventricular wall thickness. The left ventricular ejection fraction is normal. LV EF is 65%. Doppler measurements suggest normal left ventricular diastolic function. There is septal wall mild hypokinesis. There is no thrombus. Right Ventricle The right ventricle is grossly normal size. Atria Borderline right atrial enlargement. The left atrium is dilated. TANI 43.4cc/m2. The interatrial septum is intact with no evidence for an atrial septal defect. Mitral Valve The mitral valve is normal in structure and function. There is mild mitral annular calcification. There is no evidence of mitral valve prolapse. There is no vegetation seen on the mitral valve. There is no mitral valve stenosis. There is no mitral regurgitation noted. Aortic Valve Cannot exclude aortic valvular vegetation. There is no aortic valve stenosis. There is a peak gradient of 11 mm of Hg. No aortic regurgitation is present. The prosthetic aortic valve is well-seated. The prosthetic aortic valve appears to open well. There is no thrombus on the prosthetic aortic valve. There are no vegetations on this prosthetic aortic valve. Bioprosthetic leaflets are not well visualized. Tricuspid Valve The tricuspid is normal in structure and function. There is no tricuspid valve prolapse. There is no tricuspid valve vegetation. There is no tricuspid stenosis. There is a trace or physiologic amount of tricuspid regurgitation. Pulmonic Valve The pulmonic valve is not well visualized. A pulmonic valvular vegetation cannot be excluded. There is a trace or physiologic amount of pulmonic regurgitation. Great Vessels The aortic root is normal size. Effusions There is no pericardial effusion. I WMSI = 1.31 % Normal = 69 Segments Size X - Cannot 2 - 4 - 1-2 small Interpret 1 - Normal Hypokinetic 3 - AkineticDyskinetic 3-5 moderate 5 - 6-14 large Aneurysmal 15-16 diffuse : STEPHEN BLANCHARD PA-C > Tobi Kennedy
--- NOTE | 2017-06-10 20:05 | ER Document Report ---
Doctor's Note Notes: 06/10/17 20:05 Patient evaluated prior to transfer. Patient sitting upright. No acute distress. Stable at this time for discharge.
[2017-06-10 21:25] VITALS: BP 103/60
== END 2017-06-10 21:23 | disposition short-term general hospital (02) ==
LOC: ER 12:53
DX: R78.81 Bacteremia (principal); R09.89 Other specified symptoms and signs involving the circulatory and respiratory systems; Z95.3 Presence of xenogenic heart valve; Z86.79 Personal history of other diseases of the circulatory system; Z88.5 Allergy status to narcotic agent; Z91.041 Radiographic dye allergy status; Z88.1 Allergy status to other antibiotic agents; Z85.828 Personal history of other malignant neoplasm of skin
CPT/HCPCS: 99285; 96365; 36415; 87040; 85025; 87077; 80053; 81001; 87186; 83605; 93306; 71046; A9270 ×2; J0690 ×2

== ENCOUNTER → 2017-07-20 | Outpatient (CLI) | payer MEDICARE, OTHER ==
[2017-07-20 15:51] LABS: ABSOLUTE EOSINOPHILS # (AUTO) 0.4 10^3/uL (0.0-0.6); ABSOLUTE LYMPHOCYTES (AUTO) 1.5 10^3/uL (0.5-4.7); ABSOLUTE MONOCYTES (AUTO) 0.5 10^3/uL (0.1-1.4); BASOPHILS % (AUTO) 0.5 % (0-2); EOSINOPHILS % (AUTO) 7.2 % (0-6); HEMATOCRIT 33.4 % (36.0-47.0); HEMOGLOBIN 11.5 g/dL (12.0-15.5); LYMPHOCYTES % (AUTO) 27.5 % (13-45); MEAN CORPUSCULAR HEMOGLOBIN 31.5 pg (27.0-33.4); MEAN CORPUSCULAR HGB CONC 34.3 g/dL (32.0-36.0); MEAN CORPUSCULAR VOLUME 92 fl (80-97); MONOCYTES % (AUTO) 8.8 % (3-13); PLATELET COUNT 148 10^3/uL (150-450); RED BLOOD COUNT 3.65 10^6/uL (3.72-5.28); TOTAL CELLS COUNTED % (AUTO) 100 %; WHITE BLOOD COUNT 5.3 10^3/uL (4.0-10.5)
[2017-07-20 16:11] LABS: ALANINE AMINOTRANSFERASE 26 U/L (9-52); ALKALINE PHOSPHATASE 113 U/L (38-126); ANION GAP 7 (5-19); ASPARTATE AMINO TRANSFERASE 36 U/L (14-36); BILIRUBIN,TOTAL 1.2 mg/dL (0.2-1.3); BLOOD UREA NITROGEN 22 mg/dL (7-20); CALCIUM 9.2 mg/dL (8.4-10.2); CARBON DIOXIDE 27 mmol/L (22-30); CHLORIDE 107 mmol/L (98-107); GLUCOSE 102 mg/dL (75-110); POTASSIUM 4.2 mmol/L (3.6-5.0); SODIUM 141.4 mmol/L (137-145); TOTAL PROTEIN 8.1 g/dL (6.3-8.2)
[2017-07-20 16:13] LABS: APPEARANCE,URINE CLEAR; BILIRUBIN,URINE NEGATIVE (NEGATIVE); COLOR,URINE AMBER; GLUCOSE, URINE NEGATIVE (NEGATIVE); KETONES,URINE NEGATIVE (NEGATIVE); LEUKOCYTE ESTERASE,URINE NEGATIVE (NEGATIVE); NITRITE,URINE NEGATIVE (NEGATIVE); PROTEIN,URINE NEGATIVE (NEGATIVE); URINE SPECIFIC GRAVITY 1.008; UROBILINOGEN,URINE NEGATIVE mg/dL (<2.0)
== END ==
LOC: OD 14:45
PROVIDERS: ATTEND Internal Medicine Cardiovascular Disease
DX: I48.0 Paroxysmal atrial fibrillation (principal); Z79.01 Long term (current) use of anticoagulants; Z79.899 Other long term (current) drug therapy
CPT/HCPCS: 36415; 80048; 80076; 81001; 82272; 85025; 85730

== ENCOUNTER → 2019-11-27 | Outpatient (CLI) | payer MEDICARE, OTHER ==
--- NOTE | 2019-11-27 11:05 | RADIOLOGY REPORT (SQ) ---
EXAM DESCRIPTION: CHEST PA/LATERAL IMAGES COMPLETED DATE/TIME: 11/27/2019 10:09 am REASON FOR STUDY: SHORTNESS OF BREATH COMPARISON: 06/09/2017 EXAM PARAMETERS: NUMBER OF VIEWS: two views TECHNIQUE: Digital Frontal and Lateral radiographic views of the chest acquired. RADIATION DOSE: NA LIMITATIONS: none FINDINGS: LUNGS AND PLEURA: Chronic interstitial and biapical opacities, likely scarring. No focal consolidation, pleural effusion or pneumothorax. Hyperinflation with increased AP diameter and paradise ening of the hemidiaphragms. MEDIASTINUM AND HILAR STRUCTURES: No masses or contour abnormalities. HEART AND VASCULAR STRUCTURES: Normal heart size. BONES: No acute findings. Sternotomy changes. HARDWARE: Sternotomy hardware. Aortic valvular prostheses. Surgical clips overlie right chest. OTHER: No other significant finding. IMPRESSION: Emphysematous change without evidence of acute cardiopulmonary process. TECHNICAL DOCUMENTATION: JOB ID: [id number] 2010 [employer]- All Rights Reserved Reading location - IP/workstation name: [email or web address]
== END ==
LOC: RAD 09:46
PROVIDERS: ATTEND Internal Medicine Cardiovascular Disease
DX: J43.9 Emphysema, unspecified (principal); R06.02 Shortness of breath
CPT/HCPCS: 71046